=== PATIENT | female | born 1970 | race Caucasian/White ===

== ENCOUNTER 2018-12-09 10:09 | Emergency (ER) | payer SELFPAY ==
[~2018-12-09] VITALS: Ht 162.6 cm; Wt 72.7 kg
[2018-12-09 10:29] LABS: CLARITY,URINE CLOUDY; COLOR,URINE YELLOW; GLUCOSE, URINE (UA) NEGATIVE (NEGATIVE); PROTEIN,URINE 2+ (NEGATIVE)
[2018-12-09 10:30] LABS: BACTERIA,URINE LARGE /HPF; BILIRUBIN,URINE NEGATIVE (NEGATIVE); HCG,QUALITATIVE URINE NEGATIVE (NEGATIVE); KETONES,URINE NEGATIVE (NEGATIVE); LEUKOCYTE ESTERASE ,URINE 3+ (NEGATIVE); NITRITE,URINE POSITIVE (NEGATIVE); WBC,URINE TNTC /HPF
[2018-12-09] MEDS: NS IV 1000 ML 1,000 ML IV SCH ×2 (10:30→12:27)
--- NOTE | 2018-12-09 10:40 | ED GU-Female ---
General Chief Complaint: - Urinary Stated Complaint: LOWER BACK PAIN;FEVER;PAINFUL URINATION Nursing Triage Note: Patient reports fever, chills, nausea, and left flank pain since Monday. States she has had frequent UTIs since a left ureteral surgical repair in 2013. Nursing Sepsis Screen: Possible Severe Sepsis Risk Source: patient Exam Limitations: no limitations History of Present Illness Date Seen by Provider: Dec 09, 2018 Time Seen by Provider: 10:20 Initial Comments The patient is a pleasant 48-year-old female who presents for evaluation of dysuria, fever, and left lower back pain over the last 2-3 days. She reports that approximately 5 years ago she had a hysterectomy and during the procedure her ureter was injured. She states that since that time she deals with frequent UTIs and occasional pyelonephritis. She says this feels the same as previous pyelonephritis. She took her temperature at home yesterday and it was between 102-103. She is alert and oriented 4, calm, and appears to be in no distress. She is noted to be tachycardic upon arrival with a heart rate of 114. The patient provides a urine sample upon arrival and it is noted to be quite cloudy. The patient denies chest pain or shortness of breath, hematuria, abdominal pain, nausea or vomiting, dizziness or syncope. She states that she had to Bactrim pills at home and she took those thinking it would help but it made no difference. Timing/Duration: just prior to arrival Severity/Quality: moderate Location: left flank Radiation: none Activities at Onset: none Prior Genitourinary Problems: similar symptoms Associated Symptoms: fever/chills, lower back pain, urinary frequency Allergies and Home Medications Allergies Coded Allergies: Penicillins (Verified Allergy, Unknown, 12/09/18) Patient states she had an allergy as a child, but has taken amoxicillin as an adult without any reaction. Patient Home Medication List Home Medication List Reviewed: Yes Review of Systems Review of Systems Constitutional: chills, fever EENTM: no symptoms reported Respiratory: no symptoms reported Cardiovascular: no symptoms reported Gastrointestinal: no symptoms reported Genitourinary: burning, dysuria, frequency, flank pain Musculoskeletal: no symptoms reported Skin: no symptoms reported Psychiatric/Neurological: No Symptoms Reported Endocrine: No Symptoms Reported Hematologic/Lymphatic: No Symptoms Reported All Other Systemes Reviewed Negative Unless Noted: Yes Past Cmdvzdd-Cshtsv-Elsfqx Hx Past Med/Social Hx: Reviewed Nursing Past Med/Soc Hx Patient Social History Recent Foreign Travel: No Contact w/Someone Who Travel: No Recent Infectious Disease Expo: No Physical Exam Vital Signs Vital Signs - First Documented 12/09/18 10:15 Temp 36.4 Pulse 114 Resp 18 B/P (MAP) 117/74 (88) Pulse Ox 96 O2 Delivery Room Air Capillary Refill : Less Than 3 Seconds Height, Weight, BMI Height: '" Weight: lbs. oz. kg; 27.00 BMI Method: General Appearance: WD/WN, no apparent distress HEENT: PERRL/EOMI, pharynx normal Neck: non-tender, full range of motion Cardiovascular: regular rate, rhythm, no edema, no JVD Respiratory: chest non-tender, lungs clear, normal breath sounds, no respiratory distress, no accessory muscle use Gastrointestinal: normal bowel sounds, non tender, soft Back: no vertebral tenderness, CVA tenderness (L) Extremities: normal range of motion, non-tender, normal inspection, no pedal edema Neurologic/Psychiatric: electrophysiology technologist II-XII nml as tested, no motor/sensory deficits, alert, normal mood/affect, oriented x 3 Skin: normal color, warm/dry Focused Exam Lactate Level 12/09/18 10:45: Lactic Acid Level 1.82 Lactic Acid Level Laboratory Tests Test 12/09/18 10:45 Lactic Acid Level 1.82 MMOL/L (0.50-2.00) Progress/Results/Core Measures Suspected Sepsis Recent Fever Within 48 Hours: Yes Infection Criteria Present: Suspected New Infection New/Unexplained Altered Menta: No Sepsis Screen: Possible Severe Sepsis Risk SIRS Temperature: Pulse: 114 Respiratory Rate: 18 Laboratory Tests 12/09/18 10:45: White Blood Count 8.5 Blood Pressure 117 /74 Mean: 88 12/09/18 10:45: Lactic Acid Level 1.82 Laboratory Tests 12/09/18 10:45: Creatinine 1.24, Platelet Count 186, Total Bilirubin 0.5 Results/Orders Lab Results Laboratory Tests Test 12/09/18 10:15 12/09/18 10:45 Range/Units Urine Color YELLOW Urine Clarity CLOUDY Urine pH 7.0 5-9 Urine Specific [place] 1.020 1.016-1.022 Urine Protein 2+ H NEGATIVE Urine Glucose (UA) NEGATIVE NEGATIVE Urine Ketones NEGATIVE NEGATIVE Urine Nitrite POSITIVE H NEGATIVE Urine Bilirubin NEGATIVE NEGATIVE Urine Urobilinogen 1.0 NORMAL MG/DL Urine Leukocyte Esterase 3+ H NEGATIVE Urine RBC (Auto) 2+ H NEGATIVE Urine RBC NONE /HPF Urine WBC TNTC H /HPF Urine Crystals NONE /LPF Urine Bacteria LARGE H /HPF Urine Casts NONE /LPF Urine Mucus NEGATIVE /LPF Urine Culture Indicated YES Urine Test NEGATIVE NEGATIVE White Blood Count 8.5 4.3-11.0 10^3/uL Red Blood Count 4.23 L 4.35-5.85 10^6/uL Hemoglobin 13.3 11.5-16.0 G/DL Hematocrit 40 35-52 % Mean Corpuscular Volume 96 80-99 FL Mean Corpuscular Hemoglobin 31 25-34 PG Mean Corpuscular Hemoglobin Concent 33 32-36 G/DL Red Cell Distribution Width 13.0 10.0-14.5 % Platelet Count 186 130-400 10^3/uL Mean Platelet Volume 11.3 H 7.4-10.4 FL Neutrophils (%) (Auto) 83 H 42-75 % Lymphocytes (%) (Auto) 9 L 12-44 % Monocytes (%) (Auto) 8 0-12 % Eosinophils (%) (Auto) 0 0-10 % Basophils (%) (Auto) 0 0-10 % Neutrophils # (Auto) 7.0 1.8-7.8 X 10^3 Lymphocytes # (Auto) 0.7 L 1.0-4.0 X 10^3 Monocytes # (Auto) 0.6 0.0-1.0 X 10^3 Eosinophils # (Auto) 0.0 0.0-0.3 10^3/uL Basophils # (Auto) 0.0 0.0-0.1 10^3/uL Sodium Level 141 135-145 MMOL/L Potassium Level 3.8 3.6-5.0 MMOL/L Chloride Level 104 98-107 MMOL/L Carbon Dioxide Level 24 21-32 MMOL/L Anion Gap 13 5-14 MMOL/L Blood Urea Nitrogen 13 7-18 MG/DL Creatinine 1.24 0.60-1.30 MG/DL Estimat Glomerular Filtration Rate 47 BUN/Creatinine Ratio 10 Glucose Level 132 H 70-105 MG/DL Lactic Acid Level 1.82 0.50-2.00 MMOL/L Calcium Level 9.3 8.5-10.1 MG/DL Corrected Calcium 9.1 8.5-10.1 MG/DL Total Bilirubin 0.5 0.1-1.0 MG/DL Aspartate Amino Transf (AST/SGOT) 17 5-34 U/L Alanine Aminotransferase (ALT/SGPT) 13 0-55 U/L Alkaline Phosphatase 102 40-136 U/L Total Protein 7.5 6.4-8.2 GM/DL Albumin 4.2 3.2-4.5 GM/DL My Orders Orders - SYLVIA PEÑALOZA DO Ua Culture If Indicated (12/09/18 10:11) Hcg,Qualitative Urine (12/09/18 10:11) Cbc With Automated Diff (12/09/18 10:26) Comprehensive Metabolic Panel (12/09/18 10:26) Ed Iv/Invasive Line Start (12/09/18 10:26) Lactic Acid Analyzer (12/09/18 10:26) Blood Culture (12/09/18 10:26) Professor Of Radiology (12/09/18 10:26) Urine Culture (12/09/18 10:15) Ketorolac Injection (Toradol Injection) (12/09/18 10:45) Ns Iv 1000 Ml (Sodium Chloride 0.9%) (12/09/18 10:45) Ceftriaxone For Iv Use (Rocephin For I (12/09/18 11:00) Blood Culture (12/09/18 11:25) Medications Given in ED Current Medications Medications Dose Ordered Sig/Veronica Route Start Time Stop Time Status Last Admin Dose Admin Ceftriaxone Sodium 1000 mg/ Sterile Water 10 ml @ 200 mls/hr ONCE ONCE IV 12/09/18 11:00 12/09/18 11:02 DC 12/09/18 11:41 200 MLS/HR Ketorolac Tromethamine 30 mg ONCE ONCE IVP 12/09/18 10:45 12/09/18 10:46 DC 12/09/18 10:30 30 MG Vital Signs/I&O 12/09/18 10:15 Temp 36.4 Pulse 114 Resp 18 B/P (MAP) 117/74 (88) Pulse Ox 96 O2 Delivery Room Air Capillary Refill : Less Than 3 Seconds Blood Pressure Mean: 88 Progress Note : Progress Note @1200 - Patient updated on lab results suggesting an acute UTI with clinical evidence of pyelonephritis. The patient does not meet sepsis criteria. She is been given a dose of Rocephin and will go home with a prescription for ciprofloxacin. Workup today fails to reveal any emergent pathology. The patient is stable for discharge at this time. She expresses verbal understanding and agreement with the plan. She is to follow up with her PCP in the next 2-3 days and to return to the emergency Department immediately for new or worsening symptoms. Departure Impression Primary Impression: Acute pyelonephritis Disposition: HOME, SELF-CARE Condition: Stable Departure-Patient Inst. Decision time for Depature: 12:02 Referrals: SELFMITESH MD (PCP/Family) Primary Care Physician Patient Instructions: Kidney Infection (DC) Add. Discharge Instructions: Take the prescribed medication as directed. Return to the ER immediately for new or worsening symptoms. Follow-up with your doctor in the next 1-2 days. Scripts Ciprofloxacin HCl (Cipro) 500 Mg Tablet 500 MG PO BID for 7 Days, #14 TAB Prov: SYLVIA PEÑALOZA DO 12/09/18 SYLVIA PEÑALOZA DO Dec 09, 2018 10:40
[2018-12-09] MEDS ORDERED: KETOROLAC 30 MG/ML VIAL IVP ONE (10:45)
[2018-12-09] MEDS ORDERED: cefTRIAXone FOR IV USE 1,000 MG in WATER (STERILE) FOR INJECTION 10 ML IV ONE (11:00)
[2018-12-09 11:06] LABS: HEMATOCRIT 40 % (35-52); HEMOGLOBIN 13.3 G/DL (11.5-16.0); MEAN CORPUSCULAR HEMOGLOBIN 31 PG (25-34); MEAN CORPUSCULAR VOLUME 96 FL (80-99); WHITE BLOOD COUNT 8.5 10^3/uL (4.3-11.0)
[2018-12-09 11:07] LABS: BASOPHILS % (AUTO) 0 % (0-10); EOSINOPHILS % (AUTO) 0 % (0-10); LYMPHOCYTES # (AUTO) 0.7 X 10^3 (1.0-4.0); LYMPHOCYTES % (AUTO) 9 % (12-44); MEAN CORPUSCULAR HGB CONC 33 G/DL (32-36); MEAN PLATELET VOLUME 11.3 FL (7.4-10.4); MONOCYTES # (AUTO) 0.6 X 10^3 (0.0-1.0); MONOCYTES % (AUTO) 8 % (0-12); NEUTROPHILS % (AUTO) 83 % (42-75); PLATELET COUNT 186 10^3/uL (130-400)
[2018-12-09 11:23] LABS: ALBUMIN 4.2 GM/DL (3.2-4.5); BILIRUBIN,TOTAL 0.5 MG/DL (0.1-1.0); CALCIUM 9.3 MG/DL (8.5-10.1); CREATININE SERUM 1.24 MG/DL (0.60-1.30); POTASSIUM 3.8 MMOL/L (3.6-5.0); TOTAL PROTEIN 7.5 GM/DL (6.4-8.2)
[2018-12-09] MEDS ORDERED: CIPR-225 PO (12:05)
[2018-12-09] MEDS ORDERED: ONDA4TAB11 PO (12:11)
[2018-12-09 12:20] VITALS: BP 96/62
[2018-12-10] MEDS ORDERED: IBUP-2055 PO (09:41)
[2018-12-10] MEDS ORDERED: CIPR-225 PO (09:42)
== END 2018-12-09 12:17 | disposition home or self-care (01) ==
LOC: EDUNIT# 10:09 → ER FS 10:11 → EDBD 10:11 → ER FS 12:17
DX: N10 Acute pyelonephritis (principal); Z88.0 Allergy status to penicillin
CPT/HCPCS: 36415; 80053; 81000; 83605; 84703; 85025; 87040; 87077; 87088; 87186; 96361; 96374; 96375

== ENCOUNTER 2018-12-09 18:32 | Observation (INO) | payer SELFPAY ==
[~2018-12-09] VITALS: Ht 162 cm; Wt 82.2 kg
[~2018-12-09 18:32] MED LIST: CIPR-225 PO; ONDA4TAB11 PO
[2018-12-09] MEDS ORDERED: KETOROLAC 30 MG/ML VIAL IVP ONE (19:00)
[2018-12-09] MEDS ORDERED: ONDANSETRON 4 MG/2 ML (SDV) Z0FRAN IVP ONE (19:00)
[2018-12-09] MEDS ORDERED: ACETAMINOPHEN 325 MG TABLET PO ONE (19:00)
--- NOTE | 2018-12-09 19:00 | NUR ---
Report to Anat, triaging patient at this time.
--- NOTE | 2018-12-09 19:03 | ED General ---
General Chief Complaint: General Problems/Pain Stated Complaint: FEVER,CHILLS History of Present Illness Date Seen by Provider: Dec 09, 2018 Time Seen by Provider: 18:40 Initial Comments The patient is a 48-year-old female who presents for the second time today with concern for fever, dysuria and left lower back/left flank discomfort 2-3 days. Patient was diagnosed with pyelonephritis earlier today after labs demonstrated significant evidence of urinary infection and generally no other significant acute process. She was given a dose of Rocephin, IV fluids and started on Cipro. She returns for uncontrolled high fevers, nausea and rigors at home. Please see documentation from earlier today for further details as to the patient's workup and disposition at that time. Allergies and Home Medications Allergies Coded Allergies: Penicillins (Verified Allergy, Unknown, 12/09/18) Patient states she had an allergy as a child, but has taken amoxicillin as an adult without any reaction. Home Medications Ciprofloxacin HCl 500 Mg Tablet, 500 MG PO BID Prescribed by: SYLVIA PEÑALOZA on 12/09/18 1205 Ondansetron 4 Mg Tab.rapdis, 4 MG PO Q6H PRN for NAUSEA/VOMITING-1ST LINE Prescribed by: SYLVIA PEÑALOZA on 12/09/18 1211 Patient Home Medication List Home Medication List Reviewed: Yes Review of Systems Review of Systems Constitutional: see HPI EENTM: see HPI All Other Systems Reviewed Negative Unless Noted: Yes (Negative excepted noted.) Past Jbiygda-Kdvjdj-Wxjgak Hx Past Med/Social Hx: Reviewed Nursing Past Med/Soc Hx Patient Social History Alcohol Use: Denies Use Recreational Drug Use: No Smoking Status: Never a Smoker 2nd Hand Smoke Exposure: No Recent Hopitalizations: No Physical Abuse: No Sexual Abuse: No Mistreated: No Fear: No Seasonal Allergies Seasonal Allergies: No Past Medical History Surgeries: Yes (Left ureteral repair) Section, Hysterectomy Respiratory: No Cardiac: No Neurological: No Genitourinary: Yes Bladder Infection Gastrointestinal: No Musculoskeletal: No Endocrine: No HEENT: No Cancer: No Psychosocial: No Blood Disorders: No Family Medical History Reviewed Nursing Family Hx Physical Exam Vital Signs Capillary Refill : Height, Weight, BMI Height: '" Weight: lbs. oz. kg; 27.00 BMI Method: General Appearance: No Apparent Distress Comments This is an older female appearing nontoxic and in no acute distress. Head is normocephalic and atraumatic. Neck is supple and nontender. Oropharynx is moist. Lungs are clear to auscultation in all stations. There is a normal S1 and S2 without rubs or gallops and capillary refill is appropriate, less than 2 seconds globally. There is a tachycardic, regular rhythm. Abdomen is soft and with mild suprapubic tenderness to palpation without rebound or guarding. Skin is warm and dry without cyanosis, clubbing or edema. Psychiatrically, the patient didn't straights appropriate mood and affect and is alert. Progress/Results/Core Measures Suspected Sepsis SIRS Temperature: Pulse: Respiratory Rate: Blood Pressure / Mean: Results/Orders My Orders Orders - SINGH MILLAN MD Cbc With Automated Diff (12/09/18 18:55) Comprehensive Metabolic Panel (12/09/18 18:55) Ed Iv/Invasive Line Start (12/09/18 18:55) Ns Iv 1000 Ml (Sodium Chloride 0.9%) (12/09/18 18:55) Blood Culture (12/09/18 18:55) Lactic Acid Analyzer (12/09/18 18:55) Ketorolac Injection (Toradol Injection) (12/09/18 19:00) Acetaminophen Tablet/Caplet (Tylenol T (12/09/18 19:00) Ondansetron Injection (Zofran Injectio (12/09/18 19:00) Vital Signs/I&O Capillary Refill : Progress Note : Time: 19:01 Progress Note Patient states she feels worse than she did earlier and is febrile and tachycardic and appears septic from pyelonephritis despite optimal outpatient management beginning earlier today. She will require admission. We'll place IV and draw blood cultures and lactate and repeat basic labs. We will give antipyretics and IV fluids and nausea medication. Patient already had a dose of Rocephin earlier so we'll hold on additional antibiotics at this time. The patient is graciously accepted for [place] admission by Dr. Murillo. Departure Impression Primary Impression: Acute pyelonephritis Disposition: ADMITTED INPATIENT Condition: Stable Departure-Patient Inst. Referrals: SELFMITESH MD (PCP/Family) Primary Care Physician SINGH MILLAN MD Dec 09, 2018 19:03
[2018-12-09] MEDS: NS IV 1000 ML 1,000 ML IV SCH ×3 (19:15→22:14)
[2018-12-09 19:32] LABS: HEMOGLOBIN 12.4 G/DL (11.5-16.0); MEAN CORPUSCULAR HEMOGLOBIN 31 PG (25-34); WHITE BLOOD COUNT 7.1 10^3/uL (4.3-11.0)
[2018-12-09 19:33] LABS: BASOPHILS % (AUTO) 0 % (0-10); EOSINOPHILS % (AUTO) 0 % (0-10); HEMATOCRIT 39 % (35-52); LYMPHOCYTES % (AUTO) 13 % (12-44); MEAN CORPUSCULAR HGB CONC 32 G/DL (32-36); MEAN CORPUSCULAR VOLUME 38 FL (80-99); MEAN PLATELET VOLUME 10.8 FL (7.4-10.4); MONOCYTES # (AUTO) 0.7 X 10^3 (0.0-1.0); MONOCYTES % (AUTO) 10 % (0-12); NEUTROPHILS # (AUTO) 5.3 X 10^3 (1.8-7.8); NEUTROPHILS % (AUTO) 75 % (42-75); PLATELET COUNT 158 10^3/uL (130-400)
[2018-12-09 19:46] LABS: CREATININE SERUM 1.22 MG/DL (0.60-1.30); POTASSIUM 4.3 MMOL/L (3.6-5.0)
[2018-12-09 19:47] LABS: ALBUMIN 3.9 GM/DL (3.2-4.5); BILIRUBIN,TOTAL 0.4 MG/DL (0.1-1.0); CALCIUM 8.9 MG/DL (8.5-10.1); TOTAL PROTEIN 7.2 GM/DL (6.4-8.2)
--- NOTE | 2018-12-09 21:10 | NUR ---
HELENE GILES admitted to room 426-1, with an admitting diagnosis of acute pyelonephritis, on 12/09/18 from ER via stretcher, accompanied by EMS.HELENE GILES introduced to surroundings, call light, bed controls, phone, TV, temperature control, lights, meal times, smoking policy, visitor policy, side rail policy, bathrooms and showers. Patient Rights given to patient in the handbook. HELENE GILES verbalizes understanding that [facility] is not responsible for the loss or damage to any personal effects or valuables that are kept in the patients possession during their hospitalization.
[2018-12-09 21:20] VITALS: BP 108/66
[2018-12-09] MEDS ORDERED: IBUPROFEN 800 MG (MOTRIN) TAB PO PRN (22:00)
[2018-12-09] MEDS ORDERED: ONDANSETRON 4 MG/2 ML (SDV) Z0FRAN IV PRN (22:00)
[2018-12-09] MEDS ORDERED: ACETAMINOPHEN 500 MG TAB (TYLENOL) PO PRN (22:00)
[2018-12-09] MEDS ORDERED: cefTRIAXone 1,000 MG/SWFI 10 ML IV PUSH IV SCH ×2 (22:00)
--- NOTE | 2018-12-09 22:00 | NUR ---
Dr. Murillo notified of pain rated at 8:10 to left flank. New order rec for Fentanyl 50 mcg q 3 hr PRN pain.
[2018-12-09] MEDS: fentaNYL INJECTION 100 MCG/2 ML AMP IVP PRN (22:27)
[2018-12-09 23:55] VITALS: BP 98/66
[2018-12-10] MEDS: NS IV 1000 ML 1,000 ML IV SCH ×2 (03:27→19:29)
[2018-12-10 04:23] VITALS: BP 99/66
[2018-12-10 06:05] LABS: BASOPHILS % (AUTO) 0 % (0-10); EOSINOPHILS # (AUTO) 0.1 10^3/uL (0.0-0.3); EOSINOPHILS % (AUTO) 1 % (0-10); HEMATOCRIT 33 % (35-52); HEMOGLOBIN 10.8 G/DL (11.5-16.0); LYMPHOCYTES # (AUTO) 1.1 X 10^3 (1.0-4.0); LYMPHOCYTES % (AUTO) 19 % (12-44); MEAN CORPUSCULAR HEMOGLOBIN 31 PG (25-34); MEAN CORPUSCULAR HGB CONC 32 G/DL (32-36); MEAN CORPUSCULAR VOLUME 97 FL (80-99); MEAN PLATELET VOLUME 11.1 FL (7.4-10.4); MONOCYTES # (AUTO) 0.8 X 10^3 (0.0-1.0); MONOCYTES % (AUTO) 13 % (0-12); NEUTROPHILS % (AUTO) 67 % (42-75); PLATELET COUNT 136 10^3/uL (130-400); RED CELL DISTRIBUTION WIDTH 13.4 % (10.0-14.5)
[2018-12-10 06:34] LABS: ALANINE AMINOTRANSFERASE 14 U/L (0-55); ALBUMIN 3.2 GM/DL (3.2-4.5); ALKALINE PHOSPHATASE 65 U/L (40-136); BILIRUBIN,TOTAL 0.4 MG/DL (0.1-1.0); BUN/CREATININE RATIO 17; CARBON DIOXIDE 22 MMOL/L (21-32); CHLORIDE 113 MMOL/L (98-107); CREATININE SERUM 0.77 MG/DL (0.60-1.30); GFR ESTIMATED > 60; GLUCOSE 92 MG/DL (70-105); SODIUM 141 MMOL/L (135-145); TOTAL PROTEIN 6.2 GM/DL (6.4-8.2)
[2018-12-10 08:00] VITALS: BP 101/56
[2018-12-10] MEDS: fentaNYL INJECTION 100 MCG/2 ML AMP IVP PRN (08:36)
[2018-12-10] MEDS ORDERED: IBUP-2055 PO (09:41)
[2018-12-10] MEDS ORDERED: CIPR-225 PO (09:42)
--- NOTE | 2018-12-10 09:42 | NUR ---
SPOKE WITH PT WELL GOING THRU THE EXT MED HISTORY AND CALLING [facility] TO COMPLETE THE MED REC. SPOKE WITH [facility] AND THEY VERIFIED CIPRO 500MG WAS PICKED UP ON 12-09-2018 (A PRESCRIPTION OF ZOFRAN WAS ALSO SENT IN BUT THE PT NEVER PICKED THAT UP) OTC MEDS: IBUPROFEN 200MG; 4 TABS BID PRN P
[2018-12-10] MEDS: cefTRIAXone 1,000 MG/SWFI 10 ML IV PUSH IV SCH ×2 (12:22)
--- NOTE | 2018-12-10 12:35 | History & Physical ---
ELICIA EATON, 12/10/18 1235: HPI History of Present Illness: HPI: Pt presented to ED in [place] yesterday and was dx with left-sided kidney infection. Returned to ED with fever over 104, chills, nausea, and pain. She was admitted for the change in s/s. Rates pain 6/10 and describes it as throbbing. Pain medications help a bit. Has had hx of yearly pyelonephritis after ureter surgery in 2013. Has no s/s of UTI except for increase in urgency. Denies vomiting despite nausea. Source: patient Exam Limitations: no limitations Date seen by provider: Dec 10, 2018 Time Seen by Provider: 08:17 Attending Physician Salas Huang MD PCP Self,Denys SHELTON Consult Date of Admission Dec 09, 2018 at 19:00 Home Medications Home Medications Reviewed patient Home Medication Reconciliation performed by pharmacy medication reconciliations body technician and/or nursing. Patients Allergies have been reviewed. Allergies Coded Allergies: Penicillins (Verified Allergy, Unknown, 12/09/18) Patient states she had an allergy as a child, but has taken amoxicillin as an adult without any reaction. NJT-Qglczp-Snsfwi Hx Patient Social History Alcohol Use: Denies Use Recreational Drug Use: No Smoking Status: Never a Smoker 2nd Hand Smoke Exposure: No Recent Foreign Travel: No Contact w/other who traveled: No Recent Hopitalizations: No Recent Infectious Disease Expo: No Past Medical History PMHx: 1. Hypothyroidism PSHx: 1. L ureter repair in 2013 2. 3. D&C 4. Hysterectomy Family Medical History Significant Family History: No Pertinent Family Hx (Pt denies family hx) Family History: Patient reports no known family medical history. Review of Systems ([facility]) Constitutional: chills, fever; No weight gain, No weight loss EENTM: No hearing loss, No vision loss, No throat pain Respiratory: No cough, No short of breath Cardiovascular: No chest pain, No palpitations Gastrointestinal: No abdominal pain; constipation (4 days since BM), nausea; No vomiting Genitourinary: No dysuria, No frequency; other (urgency) Musculoskeletal: No back pain, No muscle pain Skin: No lesions, No rash Psychiatric/Neurological: Denies Anxiety, Denies Depressed, Denies Numbness, Denies Tingling Physical Exam-([facility]) Physical Exam Vital Signs VS - Last 72 Hours, by Label 12/09/18 12/09/18 12/09/18 12/09/18 18:37 20:20 21:10 21:20 Temp 39.5 39.0 36.7 Pulse 125 105 88 Resp 30 20 18 B/P (MAP) 141/78 (99) 120/71 108/66 Pulse Ox 94 98 96 96 O2 Delivery Room Air Room Air Room Air Room Air 12/09/18 12/10/18 23:55 04:23 Temp 35.7 36.4 Pulse 73 71 Resp 20 20 B/P (MAP) 98/66 (77) 99/66 (77) Pulse Ox 99 92 O2 Delivery Room Air Room Air Capillary Refill : Less Than 3 Seconds General Appearance: WD/WN, no apparent distress Eyes: Bilateral Eye Normal Inspection, Bilateral Eye EOMI HEENT: pharynx normal; No pale conjunctivae (R), No pale conjunctivae (L) Neck: non-tender, supple Respiratory: chest non-tender, lungs clear, normal breath sounds, no respiratory distress, no accessory muscle use Cardiovascular: regular rate, rhythm, no murmur Gastrointestinal: normal bowel sounds, non tender, soft Back: No CVA tenderness (R); CVA tenderness (L) Extremities: normal inspection, no pedal edema Neurologic/Psychiatric: alert, normal mood/affect, oriented x 3 Skin: normal color, warm/dry Lymphatic: no adenopathy Assessment/Plan Assessment/Plan Assessment & Plan Assessment: 1. Acute pyelonephritis 2. Hypothyroidism Plan: 1. Continue IV antibiotics and keep inpatient until fever-free for 24 hours 2. Continue home medications Clinical Quality Measures DVT/VTE Risk/Contraindication: Risk Factor Score Per Nursin RFS Level Per Nursing on Admit: 3=High SALAS HUANG MD 12/10/18 1315: HPI History of Present Illness: Date seen by provider: Dec 10, 2018 Time Seen by Provider: 10:55 Home Medications Allergies Coded Allergies: Penicillins (Verified Allergy, Unknown, 12/09/18) Patient states she had an allergy as a child, but has taken amoxicillin as an adult without any reaction. DDW-Dzpeea-Bgkfqj Hx Family Medical History Family History: Patient reports no known family medical history. Reviewed Test Results Reviewed Test Results Lab Laboratory Tests Test 12/09/18 17:00 12/10/18 05:49 Range/Units White Blood Count 7.1 6.0 4.3-11.0 10^3/uL Red Blood Count 3.97 L 3.46 L 4.35-5.85 10^6/uL Hemoglobin 12.4 10.8 L 11.5-16.0 G/DL Hematocrit 39 33 L 35-52 % Mean Corpuscular Volume 38 L 97 80-99 FL Mean Corpuscular Hemoglobin 31 31 25-34 PG Mean Corpuscular Hemoglobin Concent 32 32 32-36 G/DL Red Cell Distribution Width 13.0 13.4 10.0-14.5 % Platelet Count 158 136 130-400 10^3/uL Mean Platelet Volume 10.8 H 11.1 H 7.4-10.4 FL Neutrophils (%) (Auto) 75 67 42-75 % Lymphocytes (%) (Auto) 13 19 12-44 % Monocytes (%) (Auto) 10 13 H 0-12 % Eosinophils (%) (Auto) 0 1 0-10 % Basophils (%) (Auto) 0 0 0-10 % Neutrophils # (Auto) 5.3 4.0 1.8-7.8 X 10^3 Lymphocytes # (Auto) 1.0 1.1 1.0-4.0 X 10^3 Monocytes # (Auto) 0.7 0.8 0.0-1.0 X 10^3 Eosinophils # (Auto) 0.0 0.1 0.0-0.3 10^3/uL Basophils # (Auto) 0.0 0.0 0.0-0.1 10^3/uL Sodium Level 140 141 135-145 MMOL/L Potassium Level 4.3 4.0 3.6-5.0 MMOL/L Chloride Level 106 113 H 98-107 MMOL/L Carbon Dioxide Level 25 22 21-32 MMOL/L Anion Gap 9 6 5-14 MMOL/L Blood Urea Nitrogen 16 13 7-18 MG/DL Creatinine 1.22 0.77 0.60-1.30 MG/DL Estimat Glomerular Filtration Rate 47 > 60 BUN/Creatinine Ratio 13 17 Glucose Level 114 H 92 70-105 MG/DL Lactic Acid Level 0.67 0.50-2.00 MMOL/L Calcium Level 8.9 8.0 L 8.5-10.1 MG/DL Corrected Calcium 9.0 8.6 8.5-10.1 MG/DL Total Bilirubin 0.4 0.4 0.1-1.0 MG/DL Aspartate Amino Transf (AST/SGOT) 17 16 5-34 U/L Alanine Aminotransferase (ALT/SGPT) 5 14 0-55 U/L Alkaline Phosphatase 93 65 40-136 U/L Total Protein 7.2 6.2 L 6.4-8.2 GM/DL Albumin 3.9 3.2 3.2-4.5 GM/DL Physical Exam-([facility]) Physical Exam General Appearance: WD/WN, no apparent distress Respiratory: lungs clear, normal breath sounds, no respiratory distress, no accessory muscle use Cardiovascular: regular rate, rhythm, no murmur Gastrointestinal: normal bowel sounds, non tender, soft Extremities: normal inspection, no pedal edema Neurologic/Psychiatric: alert, normal mood/affect Skin: normal color, warm/dry Assessment/Plan Assessment/Plan Admission Status: Observation (1) Acute pyelonephritis Status: Acute Assessment & Plan: Without sepsis. Continue ceftriaxone, awaiting urine culture. (2) Hypothyroidism Status: Chronic Assessment & Plan: Resume home meds Qualifiers: Qualified Codes: E03.9 - Hypothyroidism, unspecified (3) DVT prophylaxis Status: Acute Assessment & Plan: Enoxaparin Supervisory-Addendum Brief Verification & Attestation Participated in pt care: history, MDM, physical Personally performed: exam, history, MDM, supervision of care Care discussed with: Medical Student Procedures: n/a Verification and Attestation of Medical Student E/M Service A medical student performed and documented this service in my presence. I reviewed and verified all information documented by the medical student and made modifications to such information, when appropriate. I personally performed the physical exam and medical decision making. See problem list for my assessment and plan. Salas Huang, Dec 10, 2018,13:15 ELICIA EATON Dec 10, 2018 12:35 SALAS HUANG MD Dec 10, 2018 13:15
[2018-12-10 12:40] VITALS: BP 99/54
[2018-12-10] MEDS ORDERED: ENOXAPARIN 40 MG/0.4 ML (LOVENOX) SYR SC SCH (13:30)
[2018-12-10 16:00] VITALS: BP 115/77
[2018-12-10 19:24] VITALS: BP 112/72
[2018-12-11] VITALS: BP 87/51
[2018-12-11] MEDS: NS IV 1000 ML 1,000 ML IV SCH
[2018-12-11 04:00] VITALS: BP 98/56
[2018-12-11 05:14] LABS: HEMOGLOBIN 10.5 G/DL (11.5-16.0); MEAN PLATELET VOLUME 11.5 FL (7.4-10.4); RED CELL DISTRIBUTION WIDTH 13.1 % (10.0-14.5); WHITE BLOOD COUNT 5.2 10^3/uL (4.3-11.0)
[2018-12-11 05:33] LABS: BUN/CREATININE RATIO 13; CALCIUM 8.3 MG/DL (8.5-10.1); CARBON DIOXIDE 22 MMOL/L (21-32); CHLORIDE 112 MMOL/L (98-107); CREATININE SERUM 0.76 MG/DL (0.60-1.30); GFR ESTIMATED > 60; GLUCOSE 98 MG/DL (70-105); POTASSIUM 4.1 MMOL/L (3.6-5.0); SODIUM 141 MMOL/L (135-145)
[2018-12-11 08:00] VITALS: BP 108/71
--- NOTE | 2018-12-11 11:30 | Discharge Instructions ---
Discharge [facility] Discharge Medications New, Converted or Re-Newed RX: Other (already picked up prior to admission) Continued Medications: Ciprofloxacin HCl (Cipro) 500 Mg Tablet 500 MG PO BID, TAB PICKED UP # DAY SUPPLY ON 12-09-2018 Ibuprofen (Ibuprofen) 200 Mg Tablet 800 MG PO BID PRN for PAIN-MILD, TAB Patient Instructions Goal/Follow Up Appt: Follow up with Dr. Lopez on 12/13 at 9:30 am. Return to The Hospital For: Fever, inability to keep down medications, decreased urination Activity & Diet Discharge Diet: Regular Diet Activity as Tolerated: Yes Copy Copies To 1: MITESH LOPEZ MD, BETHANY N MD Dec 11, 2018 11:29
[2018-12-11] MEDS: cefTRIAXone 1,000 MG/SWFI 10 ML IV PUSH IV SCH ×2 (11:33)
[2018-12-11 12:00] VITALS: BP 108/71
--- NOTE | 2018-12-12 16:28 | Discharge Summary ---
Discharge Summary Hospital Course Problems/Diagnosis: (1) Acute pyelonephritis Status: Acute Assessment & Plan: Without sepsis. Started on ceftriaxone. Discharged on cipro. Culture with E coli resistant to amp and Bactrim. (2) Hypothyroidism Status: Chronic Assessment & Plan: TSH 5.65, deferred levothyroxine to outpatient. Qualifiers: Qualified Codes: E03.9 - Hypothyroidism, unspecified Hospital Course Date of Admission: Dec 09, 2018 at 21:20 Admission Diagnosis : Family Physician/Provider: Denys Lopez MD Date of Discharge: 12/12/18 Discharge Diagnosis: See problem list Hospital Course: See problem list Labs and Pending Lab Test: Microbiology 12/09/18 Blood Culture - Preliminary, Resulted No growth Home Meds Active Reported Cipro (Ciprofloxacin HCl) 500 Mg Tablet 500 Mg PO BID PICKED UP #14 / 7 DAY SUPPLY ON 12-09-2018 Ibuprofen 200 Mg Tablet 800 Mg PO BID PRN Assessment/Pt DC Instructions see above Discharge Physical Examination Allergies: Coded Allergies: Penicillins (Verified Allergy, Unknown, 12/09/18) Patient states she had an allergy as a child, but has taken amoxicillin as an adult without any reaction. General Appearance: No Apparent Distress, WD/WN Respiratory: Lungs Clear, Normal Breath Sounds Cardiovascular: Regular Rate, Rhythm, No Murmur Neurologic/Psychiatric: Alert, Normal Mood/Affect Copy Copies To 1: DENYS LOPEZ MD Discharge Summary Date of Admission Dec 09, 2018 at 21:20 Date of Discharge Dec 11, 2018 at 11:27 Discharge Date: Dec 11, 2018 Discharge Diagnosis See problem list Clinical Quality Measures DVT/VTE Risk/Contraindication: Risk Factor Score Per Nursin RFS Level Per Nursing on Admit: 3=High SALAS JAMES MD Dec 12, 2018 16:28
== END 2018-12-11 11:27 | disposition home or self-care (01) ==
LOC: EDUNIT# 18:32 → ER FS 18:33 → UNDOADMOB 19:00 → 4TH 19:00 → UNDODISOB 12-11 12:00
PROVIDERS: ADMIT Internal Medicine; ATTEND Family Medicine
DX: N10 Acute pyelonephritis (principal); E03.9 Hypothyroidism, unspecified; Z88.0 Allergy status to penicillin; Z79.899 Other long term (current) drug therapy; Z90.710 Acquired absence of both cervix and uterus
CPT/HCPCS: 36415; 80048; 80053; 83605; 84443; 85025; 85027; 87040; 96361; 96374; 96375; G0378

== ENCOUNTER 2020-11-08 10:26 | Inpatient (IN) | payer SELFPAY ==
[~2020-11-08] VITALS: Ht 162.6 cm; Wt 89.6 kg
[~2020-11-08 10:26] MED LIST changes: +IBUP-2473 PO
--- OUTSIDE RECORDS SUMMARY | 2020-11-08 10:31 | XMS REPORT | Clinical Summary ---
Author Author [facility] Organization [facility] Address Unknown Phone Unavailable Care Team Providers Care Electromechanical Inspector Name Role Phone John, Denys SHELTON PCP Shagufta Lyles RN Unavailable Unavailable Devon Martines MD Unavailable Source Comments Some departments are not documenting in the electronic medical record. If you d o not see the information that you expected, contact Release of Information in [facility] Information Management department at [phone] for further assistan ce in locating additional records.[facility] Allergies Comments Active Allergy Reactions Severity Noted Date Penicillin G UNKNOWN 08/20/2013 Oxycodone-Acetaminophen UNKNOWN 08/20/2013 Medications End Date Status Medication Sig Dispensed Refills Start Date Active levofloxacin (LEVAQUIN) Take 750 mg 0 750 mg tablet by mouth daily. Active nitrofurantoin SR Take 1 Cap by 30 Cap 5 (MACROBID) 100 mg capsule mouth every 5 12 hours. 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 Intraoperative ureteral injury 08/20/2013 Surgical History Surgery Date Site/Laterality Comments ND CYSTO W/SIMPLE REMOVAL 09/30/2013 STONE & STENT Family History Medical History Relation Name Comments Hypertension Father Cancer Maternal Grandmother Arthritis-osteo Mother Asthma Mother Cancer Mother Cancer Paternal Grandfather Relation Name Status Comments Father Maternal Grandmother Mother Paternal Grandfather Social History Date Tobacco Use Types Packs/Day Years Used Never Smoker Smokeless Tobacco: Never Used Comments Alcohol Use Standard Drinks/Week quit February 2014 No 5 (1 standard drink = 0.6 o z pure alcohol) Sex Assigned at Date Recorded Not on file Last Filed Vital Signs Reading Time Taken Comments Vital Sign 118/75 04/21/2014 9:36 AM LICENSED WEIGHER Blood Pressure 78 04/21/2014 9:36 AM LICENSED WEIGHER Pulse 37.1 C (98.7 F) 08/24/2013 7:06 AM CDT Temperature - - Respiratory Rate 99% 08/24/2013 7:06 AM CDT Oxygen Saturation - - Inhaled Oxygen Concentration 78 kg (172 lb) 04/21/2014 9:36 AM LICENSED WEIGHER Weight 162.6 cm (5' 4") 04/21/2014 9:36 AM LICENSED WEIGHER Height 29.52 04/21/2014 9:36 AM LICENSED WEIGHER Body Mass Index Plan of Treatment Health Maintenance Due Date Last Done Comments HIV SCREENING 02/03/1987 DTAP/TDAP VACCINES (1 - 02/03/1990 Tdap) HEPATITIS C SCREENING 02/03/1990 PHYSICAL (COMPREHENSIVE) 02/03/1990 EXAM CERVICAL CANCER SCREENING 02/03/1993 BREAST CANCER SCREENING 2012 INFLUENZA VACCINE 12/11/2020 Results Not on filefrom Last 3 Months Insurance Type Payer Benefit Subscriber ID Effective Phone Address Plan / Dates Group PPO BCBS [facility] [id number] [id number] PREF CARE resent BLUE Medicaid [employer] [employer] [id number] 2014-P [facility] [phone] Advance Directives Patient Public Affairs Officer Explanation Type Date Recorded Advance 08/20/2013 3:55 PM Directive/DPOA Date Inactivated Comments Code Status Date Activated 08/24/2013 1:42 PM Full Code 08/20/2013 5:39 PM Provider has discussed Code Status Yes w/Patient or Family?
[2020-11-08 11:02] LABS: BASOPHILS % (AUTO) 0 % (0-10); EOSINOPHILS % (AUTO) 0 % (0-10); HEMATOCRIT 40 % (35-52); HEMOGLOBIN 13.5 g/dL (11.5-16.0); LYMPHOCYTES # (AUTO) 1.1 X 10^3 (1.0-4.0); LYMPHOCYTES % (AUTO) 20 % (12-44); MEAN CORPUSCULAR HEMOGLOBIN 31 pg (25-34); MEAN CORPUSCULAR HGB CONC 34 g/dL (32-36); MEAN CORPUSCULAR VOLUME 93 fL (80-99); MEAN PLATELET VOLUME 10.7 fL (9.0-12.2); MONOCYTES # (AUTO) 0.2 X 10^3 (0.0-1.0); MONOCYTES % (AUTO) 4 % (0-12); NEUTROPHILS # (AUTO) 4.2 X 10^3 (1.8-7.8); NEUTROPHILS % (AUTO) 74 % (42-75); PLATELET COUNT 227 10^3/uL (130-400); WHITE BLOOD COUNT 5.6 10^3/uL (4.3-11.0)
[2020-11-08] MEDS ORDERED: RT-ALBUTEROL HFA 8.5 GM INHALER IH STA (11:03)
[2020-11-08] MEDS ORDERED: NS IV 1000 ML 1,000 ML IV STA ×2 (11:03→12:06)
[2020-11-08 11:04] LABS: INR 0.9 (0.8-1.4); PROTHROMBIN TIME PATIENT 12.4 SEC (12.2-14.7)
[2020-11-08 11:13] LABS: ALANINE AMINOTRANSFERASE 49 U/L (0-55); ALKALINE PHOSPHATASE 165 U/L (40-136); BILIRUBIN,TOTAL 0.3 MG/DL (0.1-1.0); BUN/CREATININE RATIO 8; CALCIUM 8.6 MG/DL (8.5-10.1); CARBON DIOXIDE 27 MMOL/L (21-32); CHLORIDE 99 MMOL/L (98-107); CREATININE SERUM 1.18 MG/DL (0.60-1.30); GFR ESTIMATED 49; GLUCOSE 128 MG/DL (70-105); POTASSIUM 4.2 MMOL/L (3.6-5.0); SODIUM 137 MMOL/L (135-145); TOTAL PROTEIN 7.5 GM/DL (6.4-8.2)
[2020-11-08] MEDS ORDERED: ONDANSETRON 4 MG/2 ML (SDV) Z0FRAN IVP STA (11:14)
--- NOTE | 2020-11-08 11:14 | ED Respiratory ---
General Chief Complaint: Respiratory Problems Stated Complaint: COUGH; SOB Source: patient, old records History of Present Illness Date Seen by Provider: Nov 08, 2020 Time Seen by Provider: 10:28 Initial Comments 50 yo female presenting with complaints of over 2 weeks of respiratory symptoms. Her tested positive for Covid 1 week ago. She has not gone to see Dr. Lopez or tried to get any help with her illness from clinic during the last 2 weeks. She presents today to the emergency department because she was tired of being sick at home and said she could not tolerate it any longer. She was having rib pain from coughing so hard. She states occasionally she is bringing up some mucus. She has had some nausea and vomiting but denies diarrhea. She denies pain with urination. She feels weak overall and has some dizzy and lightheaded sensation when she stands. She denies any pain or swelling in her calves or legs. Prior Episodes/Possible Cause: no prior episodes Associated Symptoms: chest pain/soreness (from coughing), cough, dizziness, fever/chills, headache, lightheadedness, muscle aches, nasal congestion, nasal drainage, shortness of breath, wheezing Allergies and Home Medications Allergies Coded Allergies: Penicillins (Verified Allergy, Unknown, 12/09/18) Patient states she had an allergy as a child, but has taken amoxicillin as an adult without any reaction. Home Medications No Active Prescriptions or Reported Meds Patient Home Medication List Home Medication List Reviewed: Yes Review of Systems Review of Systems Constitutional: chills, dizziness, fever, malaise, weakness EENTM: see HPI Respiratory: cough; No hemoptysis; short of breath; No stridor; wheezing Cardiovascular: see HPI; No edema Gastrointestinal: see HPI; No diarrhea; nausea, vomiting Genitourinary: decreased output Musculoskeletal: see HPI Skin: No rash Psychiatric/Neurological: Headache Past Wfftiuj-Kyufhb-Xwvvqu Hx Seasonal Allergies Seasonal Allergies: No Past Medical History Surgeries: Yes (Left ureteral repair) Section, Hysterectomy Respiratory: No Cardiac: No Neurological: No Genitourinary: Yes Kidney Infection, Bladder Infection, UTI-Chronic Gastrointestinal: No Musculoskeletal: No Endocrine: No HEENT: No Cancer: No Psychosocial: No Blood Disorders: No Family Medical History Patient reports no known family medical history. No Pertinent Family Hx Physical Exam Vital Signs - First Documented 11/08/20 11/08/20 10:40 12:30 Temp 37.4 Pulse 111 Resp 22 B/P (MAP) 91/67 (75) Pulse Ox 92 O2 Delivery Room Air O2 Flow Rate 2.00 Capillary Refill : Height: '" Weight: lbs. oz. kg; 31.32 BMI Method: General Appearance: mild distress, obese HEENT: PERRL/EOMI, pharynx normal Neck: non-tender, full range of motion, supple, normal inspection Respiratory: no respiratory distress, no accessory muscle use, decreased breath sounds, other (tender to chest wall with palpation) Cardiovascular: normal peripheral pulses, tachycardia Gastrointestinal: normal bowel sounds, soft, no pulsatile mass Extremities: normal range of motion, non-tender, no calf tenderness, normal capillary refill Neurologic/Psychiatric: field marketing coordinator II-XII nml as tested, alert, oriented x 3 Skin: normal color, warm/dry Focused Exam Lactate Level 11/08/20 10:45: Lactic Acid Level 1.08 Lactic Acid Level Laboratory Tests Test 11/08/20 10:45 Lactic Acid Level 1.08 MMOL/L (0.50-2.00) Progress/Results/Core Measures Suspected Sepsis SIRS Temperature: Pulse: Respiratory Rate: Laboratory Tests 11/08/20 10:45: White Blood Count 5.6 Blood Pressure / Mean: 11/08/20 10:45: Lactic Acid Level 1.08 Laboratory Tests 11/08/20 10:45: Creatinine 1.18, INR Comment 0.9, Platelet Count 227, Total Bilirubin 0.3 Results/Orders Lab Results Laboratory Tests Test 11/08/20 10:45 11/08/20 10:55 11/08/20 10:58 11/08/20 13:45 Range/Units White Blood Count 5.6 4.3-11.0 10^3/uL Red Blood Count 4.32 3.80-5.11 10^6/uL Hemoglobin 13.5 11.5-16.0 g/dL Hematocrit 40 35-52 % Mean Corpuscular Volume 93 80-99 fL Mean Corpuscular Hemoglobin 31 25-34 pg Mean Corpuscular Hemoglobin Concent 34 32-36 g/dL Red Cell Distribution Width 12.6 10.0-14.5 % Platelet Count 227 130-400 10^3/uL Mean Platelet Volume 10.7 9.0-12.2 fL Immature Granulocyte % (Auto) 2 % Neutrophils (%) (Auto) 74 42-75 % Lymphocytes (%) (Auto) 20 12-44 % Monocytes (%) (Auto) 4 0-12 % Eosinophils (%) (Auto) 0 0-10 % Basophils (%) (Auto) 0 0-10 % Neutrophils # (Auto) 4.2 1.8-7.8 X 10^3 Lymphocytes # (Auto) 1.1 1.0-4.0 X 10^3 Monocytes # (Auto) 0.2 0.0-1.0 X 10^3 Eosinophils # (Auto) 0.0 0.0-0.3 10^3/uL Basophils # (Auto) 0.0 0.0-0.1 10^3/uL Immature Granulocyte # (Auto) 0.1 0.0-0.1 10^3/uL Prothrombin Time 12.4 12.2-14.7 SEC INR Comment 0.9 0.8-1.4 Activated Partial Thromboplast Time 31 24-35 SEC D-Dimer 1.25 H 0.00-0.49 UG/ML Sodium Level 137 135-145 MMOL/L Potassium Level 4.2 3.6-5.0 MMOL/L Chloride Level 99 98-107 MMOL/L Carbon Dioxide Level 27 21-32 MMOL/L Anion Gap 11 5-14 MMOL/L Blood Urea Nitrogen 10 7-18 MG/DL Creatinine 1.18 0.60-1.30 MG/DL Estimat Glomerular Filtration Rate 49 BUN/Creatinine Ratio 8 Glucose Level 128 H 70-105 MG/DL Lactic Acid Level 1.08 0.50-2.00 MMOL/L Calcium Level 8.6 8.5-10.1 MG/DL Corrected Calcium 8.6 8.5-10.1 MG/DL Total Bilirubin 0.3 0.1-1.0 MG/DL Aspartate Amino Transf (AST/SGOT) 82 H 5-34 U/L Alanine Aminotransferase (ALT/SGPT) 49 0-55 U/L Alkaline Phosphatase 165 H 40-136 U/L Troponin I < 0.30 <0.30 NG/ML C-Reactive Protein 9.83 H <0.50 MG/DL Pro-B-Type Natriuretic Peptide 24.9 <75.0 PG/ML Total Protein 7.5 6.4-8.2 GM/DL Albumin 4.0 3.2-4.5 GM/DL Blood Gas Puncture Site RIGHT RADIAL Blood Gas Patient Temperature 99.5 Arterial Blood pH 7.50 H 7.37-7.43 Arterial Blood Partial Pressure CO2 35 35-45 MMHG Arterial Blood Partial Pressure O2 53 L 79-93 MMHG Arterial Blood HCO3 27 23-27 MMOL/L Arterial Blood Total CO2 28.4 21.0-31.0 MMOL/L Arterial Blood Oxygen Saturation 90 L 94-100 % Arterial Blood Base Excess 4.2 H -2.5-2.5 MMOL/L Mendoza Test NEGATIVE Blood Gas Ventilator Setting NO Blood Gas Inspired Oxygen ROOM AIR SARS-CoV-2 RNA (RT-PCR) Detected H Not Detecte Urine Color YELLOW Urine Clarity CLEAR Urine pH 6.0 5-9 Urine Specific Willis <=1.005 1.016-1.022 Urine Protein NEGATIVE NEGATIVE Urine Glucose (UA) NEGATIVE NEGATIVE Urine Ketones NEGATIVE NEGATIVE Urine Nitrite NEGATIVE NEGATIVE Urine Bilirubin NEGATIVE NEGATIVE Urine Urobilinogen 0.2 < = 1.0 MG/DL Urine Leukocyte Esterase NEGATIVE NEGATIVE Urine RBC (Auto) NEGATIVE NEGATIVE Urine RBC NONE /HPF Urine WBC 0-2 /HPF Urine Squamous Epithelial Cells 5-10 /HPF Urine Crystals NONE /LPF Urine Bacteria TRACE /HPF Urine Casts PRESENT /LPF Urine Hyaline Casts 0-2 H /LPF Urine Mucus NEGATIVE /LPF Urine Culture Indicated NO My Orders Orders - LATESHA HOLLEY MD Monitor-Rhythm Ecg Trace Only (11/08/20 10:59) Ed Iv/Invasive Line Start (11/08/20 10:59) Cbc With Automated Diff (11/08/20 10:59) Comprehensive Metabolic Panel (11/08/20 10:59) Crp Fs (11/08/20 10:59) Troponin I Fs (11/08/20 10:59) Protime With Inr (11/08/20 10:59) Partial Thromboplastin Time (11/08/20 10:59) Ekg Tracing (11/08/20 10:59) Arterial Blood Gas (11/08/20 10:59) Blood Culture (11/08/20 11:00) Lactic Acid Analyzer (11/08/20 11:00) Covid 19 Inhouse Test (11/08/20 11:00) Isolation Central Supply Req (11/08/20 11:00) Influenza A & B Antigens (11/08/20 11:00) Probnp Fs (11/08/20 11:02) Fibrin Degradation Products (11/08/20 11:02) Ua Culture If Indicated (11/08/20 11:02) Ns Iv 1000 Ml (Sodium Chloride 0.9%) (11/08/20 11:03) Dexamethasone Injection (Decadron Inje (11/08/20 11:03) Albuterol Inhaler (Albuterol) (11/08/20 11:03) Nursing Communication (Order) (11/08/20 11:03) Chest 1 View Ap/Pa Only (11/08/20 11:07) Ondansetron Injection (Zofran Injectio (11/08/20 11:14) Ondansetron Injection (Zofran Injectio (11/08/20 11:16) Ct Angio Chest W (11/08/20 11:48) Iohexol Injection (Omnipaque 350 Mg/Ml 1 (11/08/20 12:15) Received Contrast (Hold Metformin- Contr (11/08/20 12:15) Sodium Chloride Flush (Catheter Flush Sy (11/08/20 12:15) Ns (Ivpb) (Sodium Chloride 0.9% Ivpb Bag (11/08/20 12:15) Ns Iv 1000 Ml (Sodium Chloride 0.9%) (11/08/20 12:06) O2 (11/08/20 12:06) Lactated Ringers (Lr 1000 Ml Iv Solution (11/08/20 13:30) Medications Given in ED Current Medications Medications Dose Ordered Sig/Veronica Route Start Time Stop Time Status Last Admin Dose Admin Iohexol 100 ml ONCE ONCE IV 11/08/20 12:15 11/08/20 12:16 DC 11/08/20 12:25 100 ML Vital Signs/I&O 11/08/20 11/08/20 10:40 12:30 Temp 37.4 Pulse 111 Resp 22 B/P (MAP) 91/67 (75) Pulse Ox 92 95 O2 Delivery Room Air Nasal Cannula O2 Flow Rate 2.00 Capillary Refill : Progress Note #1: Progress Note Check labs as well as chest x-ray, EKG, blood gas, cardiac enzymes, D-dimer. Give IV fluids for hydration, Decadron as a steroid to help with inflammation and cough, albuterol inhaler with spacer to help with cough. Differential diagnosis includes Covid since had a positive exposure with her tested positive last week. Also pulmonary embolism, pneumonia, influenza, myocardial infarction, viral syndrome, pyelonephritis Progress Note #2: Progress Note Labs shows CBC stable without acute significant anemia. Normal white count. The chemistry does not show any acute significant abnormality. She is not septic and has a normal lactic acid. She does have an elevated CRP. Her cardiac enzymes are negative. Her ABG shows a pH of 7.5, PCO2 of 35, PO2 of 53 and this was on room air. Her coags are normal but she does have elevated D- dimer. The EKG is not show any acute significant abnormality and is a sinus tach. Chest x-ray shows diffuse patchy infiltrates consistent with Covid She is doing a little bit better with treatment and after the inhaler is coughing less. She felt like she was having some nausea might vomit because of her coughing so dose of Zofran was given as well. Will obtain a CT angio to evaluate her elevated D-dimer and concern for pulmonary embolism Progress Note #3: Progress Note CT angiogram of chest negative for PE. Proceed with admit to med/surg [facility] bed for [facility] service. ECG Initial ECG Impression Date: Nov 08, 2020 Initial ECG Impression Time: 11:05 Initial ECG Rate: 107 Initial ECG Rhythm: S.Tach Initial ECG Comparisson: No Previous ECG Available Comment Sinus tachycardia with a heart rate of 107 bpm. OH interval 164 ms. Right axis deviation. Low voltage in the precordial leads. QT interval 318 ms. QTc interval [address] elevation. No prior tracing available for comparison Diagnostic Imaging Diagonstic Imaging: Xray Plain Films/CT/US/NM/MRI: chest Comments [facility] Reviews & Information [facility]. [place], [place] NAME: HELENE GILES [facility] REC#: [id number] PT STATUS: REG ER : 1970 PHYSICIAN: LATESHA HOLLEY MD ADMIT DATE: 11/08/20/ER FS Draft Date of Exam:11/08/20 CHEST 1 VIEW AP/PA ONLY INDICATION: Cough and fever COMPARISON: No prior examinations are available for comparison. FINDINGS: The heart size is normal. There are patchy bilateral groundglass infiltrates. There is no pleural effusion or pneumothorax. The mediastinum is unremarkable. IMPRESSION: Patchy bilateral groundglass infiltrates suspect for atypical pneumonia possibly Covid. Recommend clinical correlation. Dictated on workstation # [id number] Dict: 11/08/20 1129 Trans: 11/08/20 1135 [facility] [id number] Interpreted by: ANDREA MORENO MD Electronically signed by: Reviewed: Reviewed by Me Diagonstic Imaging: CT Plain Films/CT/US/NM/MRI: chest Comments NAME: HELENE GILES [facility] REC#: [id number] PT STATUS: REG ER : 1970 PHYSICIAN: LATESHA HOLLEY MD ADMIT DATE: 11/08/20/ER FS Draft Date of Exam:11/08/20 CT ANGIO CHEST W PROCEDURE: CT angiography of the chest with contrast. TECHNIQUE: Multiple contiguous axial images were obtained through the chest after uneventful bolus administration of intravenous contrast. 3D reconstructed CTA MIP acquisitions were also performed. Auto Exposure Controls were utilized during the CT exam to meet ALARA standards for radiation dose reduction. INDICATION: Shortest of breath. Covid COMPARISON: There are no prior CTA chest examinations available for comparison. This study is less than optimal as the superiormost portion of the lung apices were not included. The plain film examination of the chest performed earlier today at 11:06 AM noted patchy groundglass infiltrates bilaterally. This was felt to be suspicious for pneumonia related to Covid. On this exam, there are groundglass infiltrates involving both lungs. This appearance is highly suggestive of pneumonia/atelectasis related to Covid. There is no pleural effusion identified. The aorta is not abnormally dilated and there is no sign of dissection. There is no defect within the pulmonary arteries to indicate a pulmonary embolus either. The heart size is within normal limits. There is no mediastinal or hilar adenopathy. The sections through the upper abdomen failed to show any evidence for an acute abnormality. The liver is of lower density than usually seen. This does suggest fatty metamorphosis. There is no obvious breast mass. The bone windows are unremarkable for a fracture or for a destructive lesion. IMPRESSION: 1. There are groundglass infiltrates involving both lungs. Most likely this is secondary to pneumonia/atelectasis related to the patient's diagnosis of Covid 19. 2. There is no acute cardiopulmonary abnormality noted otherwise. In particular, there is no sign of a pulmonary embolus. 3. The appearance of the liver does suggest fatty metamorphosis. Dictated on workstation # [id number] Dict: 11/08/20 1231 Trans: 11/08/20 1242 [facility] [id number] Interpreted by: ASIM COHEN MD Electronically signed by: Reviewed: Reviewed by Me Departure Communication (Admissions) Time/Spoke to Admitting Phy: 12:[address] Murillo on-call for [facility] and she accepted the patient for admission with presumed Covid since she is having some hypoxemia and dehydration with cough. Pending CT angiogram to look for pulmonary embolism prior to admission. Impression Primary Impression: Upper respiratory infection with cough and congestion Additional Impressions: COVID-19 virus infection Dehydration Hypoxemia Disposition: 30 STILL A PATIENT Condition: Stable Admissions Decision to Admit Reason: Admit from ER (General) Decision to Admit/Date: Nov 08, 2020 Time/Decision to Admit Time: 12:15 Departure-Patient Inst. Referrals: MITESH LOPEZ MD (PCP/Family) Primary Care Physician Scripts No Active Prescriptions or Reported Meds LATESHA HOLLEY MD Nov 08, 2020 11:14
[2020-11-08 11:15] LABS: ABG BASE EXCESS 4.2 MMOL/L (-2.5-2.5); ABG OXYGEN SATURATION 90 % (94-100); ABG PCO2 35 MMHG (35-45); ABG PO2 53 MMHG (79-93); ABG TCO2 28.4 MMOL/L (21.0-31.0)
[2020-11-08 11:16] LABS: ALLENS TEST NEGATIVE; INSPIRED O2 ROOM AIR; PATIENT TEMP 99.5; VENTILATOR NO
[2020-11-08] MEDS ORDERED: ONDANSETRON 4 MG/2 ML (SDV) Z0FRAN ONE (11:16)
--- NOTE | 2020-11-08 11:37 | Diagnostic Imaging Report ---
INDICATION: Cough and fever COMPARISON: No prior examinations are available for comparison. FINDINGS: The heart size is normal. There are patchy bilateral groundglass infiltrates. There is no pleural effusion or pneumothorax. The mediastinum is unremarkable. IMPRESSION: Patchy bilateral groundglass infiltrates suspect for atypical pneumonia possibly Covid. Recommend clinical correlation. Dictated by: Dictated on workstation # [id number]
[2020-11-08] MEDS ORDERED: IOHEXOL 350 MG/ML 100 ML (OMNIPAQUE 350) VIAL IV ONE (12:15)
[2020-11-08] MEDS ORDERED: NS 100 ML (IVPB) BAG IV ONE (12:15)
[2020-11-08] MEDS ORDERED: CATHETER FLUSH 10 ML SYR IV PRN ×2 (12:15→15:45)
[2020-11-08] MEDS ORDERED: HOLD METFORMIN - RECEIVED CONTRAST 20 ML VIAL IV SCH (12:15)
--- NOTE | 2020-11-08 12:42 | Diagnostic Imaging Report ---
PROCEDURE: CT angiography of the chest with contrast. TECHNIQUE: Multiple contiguous axial images were obtained through the chest after uneventful bolus administration of intravenous contrast. 3D reconstructed CTA MIP acquisitions were also performed. Auto Exposure Controls were utilized during the CT exam to meet ALARA standards for radiation dose reduction. INDICATION: Shortest of breath. Covid COMPARISON: There are no prior CTA chest examinations available for comparison. This study is less than optimal as the superiormost portion of the lung apices were not included. The plain film examination of the chest performed earlier today at 11:06 AM noted patchy groundglass infiltrates bilaterally. This was felt to be suspicious for pneumonia related to Covid. On this exam, there are groundglass infiltrates involving both lungs. This appearance is highly suggestive of pneumonia/atelectasis related to Covid. There is no pleural effusion identified. The aorta is not abnormally dilated and there is no sign of dissection. There is no defect within the pulmonary arteries to indicate a pulmonary embolus either. The heart size is within normal limits. There is no mediastinal or hilar adenopathy. The sections through the upper abdomen failed to show any evidence for an acute abnormality. The liver is of lower density than usually seen. This does suggest fatty metamorphosis. There is no obvious breast mass. The bone windows are unremarkable for a fracture or for a destructive lesion. IMPRESSION: 1. There are groundglass infiltrates involving both lungs. Most likely this is secondary to pneumonia/atelectasis related to the patient's diagnosis of Covid 19. 2. There is no acute cardiopulmonary abnormality noted otherwise. In particular, there is no sign of a pulmonary embolus. 3. The appearance of the liver does suggest fatty metamorphosis. Dictated by: Dictated on workstation # [id number]
[2020-11-08] MEDS ORDERED: LACTATED RINGERS 1,000 ML IV SCH (13:30)
[2020-11-08 13:57] LABS: BACTERIA,URINE TRACE /HPF; BILIRUBIN,URINE NEGATIVE (NEGATIVE); CLARITY,URINE CLEAR; COLOR,URINE YELLOW; GLUCOSE, URINE (UA) NEGATIVE (NEGATIVE); HYALINE CASTS, URINE 0-2 /LPF; KETONES,URINE NEGATIVE (NEGATIVE); LEUKOCYTE ESTERASE ,URINE NEGATIVE (NEGATIVE); NITRITE,URINE NEGATIVE (NEGATIVE); PROTEIN,URINE NEGATIVE (NEGATIVE); WBC,URINE 0-2 /HPF
[2020-11-08] MEDS ORDERED: diphenhydrAMINE 25 MG TAB (BENADRYL) PO PRN (16:00)
[2020-11-08] MEDS ORDERED: MELATONIN 3 MG TABLET PO PRN (16:00)
[2020-11-08] MEDS ORDERED: ALPRAZolam 0.25 MG (XANAX) TAB PO PRN (16:00)
[2020-11-08] MEDS ORDERED: LOPERAMIDE 2 MG (IMODIUM) TABLET PO PRN (16:00)
[2020-11-08] MEDS ORDERED: DOCUSATE SODIUM 100 MG (COLACE) CAP PO PRN (16:00)
[2020-11-08] MEDS ORDERED: CALCIUM CARBONATE 500 MG (TUMS) TAB.CHEW PO PRN (16:00)
[2020-11-08] MEDS ORDERED: ACETAMINOPHEN 325 MG TABLET PO PRN (16:00)
[2020-11-08] MEDS ORDERED: RT-ALBUTEROL HFA 8.5 GM INHALER IH PRN (16:00)
[2020-11-08] MEDS ORDERED: ACETAMINOPHEN 500 MG TAB (TYLENOL) PO PRN (16:00)
[2020-11-08] MEDS: guaiFENesin/CODEINE (ROBITUSSIN AC) 10ML UDC PO PRN (16:23)
[2020-11-08] MEDS: ENOXAPARIN 40 MG/0.4 ML (LOVENOX) SYR SC SCH (16:23)
[2020-11-08] MEDS: HYDROcodone/APAP 5 MG/325 MG (LORTAB) TAB PO PRN (16:24)
[2020-11-08] MEDS: LACTATED RINGERS 1,000 ML IV SCH (16:24)
[2020-11-08 16:29] VITALS: BP 91/67
[2020-11-08 16:59] VITALS: BP 102/55
[2020-11-08] MEDS ORDERED: RT-ALBUTEROL HFA 8.5 GM INHALER IH SCH (18:00)
[2020-11-08] MEDS: RT-ALBUTEROL HFA 8.5 GM INHALER IH SCH ×2 (19:01→21:07)
[2020-11-08 20:04] VITALS: BP 100/65
[2020-11-08] MEDS: polyethylene glycoL POWDER 17 GM (MIRALAX) PACK PO SCH (21:03)
[2020-11-08] MEDS: SENNA W/DOCUSATE (SENOKOT S) TABLET PO SCH (21:03)
[2020-11-08 22:22] LABS: ALBUMIN 3.5 GM/DL (3.2-4.5)
[2020-11-08 22:23] LABS: POTASSIUM 3.6 MMOL/L (3.6-5.0)
[2020-11-08 22:24] LABS: CALCIUM 8.2 MG/DL (8.5-10.1)
[2020-11-08 22:25] LABS: TOTAL PROTEIN 6.6 GM/DL (6.4-8.2)
[2020-11-08 22:27] LABS: BILIRUBIN,TOTAL 0.3 MG/DL (0.1-1.0)
[2020-11-08 22:29] LABS: CREATININE SERUM 1.03 MG/DL (0.60-1.30)
[2020-11-08 23:59] VITALS: BP 103/69
[2020-11-09] MEDS: RT-ALBUTEROL HFA 8.5 GM INHALER IH SCH ×5 (02:23→20:48)
[2020-11-09 04:06] VITALS: BP 93/60
[2020-11-09 05:38] LABS: BASOPHILS % (AUTO) 0 % (0-10); EOSINOPHILS % (AUTO) 0 % (0-10); HEMATOCRIT 34 % (35-52); HEMOGLOBIN 11.3 g/dL (11.5-16.0); LYMPHOCYTES # (AUTO) 0.4 10^3/uL (1.0-4.0); LYMPHOCYTES % (AUTO) 11 % (12-44); MEAN CORPUSCULAR HEMOGLOBIN 32 pg (25-34); MEAN CORPUSCULAR HGB CONC 33 g/dL (32-36); MEAN CORPUSCULAR VOLUME 96 fL (80-99); MONOCYTES # (AUTO) 0.2 10^3/uL (0.0-1.0); MONOCYTES % (AUTO) 6 % (0-12); NEUTROPHILS # (AUTO) 2.8 10^3/uL (1.8-7.8); NEUTROPHILS % (AUTO) 78 % (42-75); PLATELET COUNT 226 10^3/uL (130-400); WHITE BLOOD COUNT 3.5 10^3/uL (4.3-11.0)
[2020-11-09 05:43] LABS: SMEAR SCAN COMMENT YES
[2020-11-09 06:00] LABS: ALBUMIN 3.4 GM/DL (3.2-4.5); POTASSIUM 3.8 MMOL/L (3.6-5.0)
[2020-11-09 06:01] LABS: CALCIUM 8.4 MG/DL (8.5-10.1)
[2020-11-09 06:02] LABS: TOTAL PROTEIN 6.5 GM/DL (6.4-8.2)
[2020-11-09 06:04] LABS: BILIRUBIN,TOTAL 0.2 MG/DL (0.1-1.0)
[2020-11-09 06:06] LABS: CREATININE SERUM 0.83 MG/DL (0.60-1.30)
[2020-11-09 08:00] VITALS: BP 99/58
[2020-11-09] MEDS: polyethylene glycoL POWDER 17 GM (MIRALAX) PACK PO SCH ×2 (08:25→20:25)
[2020-11-09] MEDS: SENNA W/DOCUSATE (SENOKOT S) TABLET PO SCH ×2 (08:25→20:25)
[2020-11-09] MEDS ORDERED: ACET-2267 PO (08:53)
[2020-11-09] MEDS ORDERED: IBUP-2185 PO (08:53)
[2020-11-09] MEDS ORDERED: GUAI180L12 PO (08:53)
[2020-11-09] MEDS: LACTATED RINGERS 1,000 ML IV SCH (11:52)
[2020-11-09 12:00] VITALS: BP 114/65
[2020-11-09] MEDS: HYDROcodone/APAP 5 MG/325 MG (LORTAB) TAB PO PRN (14:38)
--- NOTE | 2020-11-09 15:37 | History & Physical ---
HPI History of Present Illness: 50 yo F that presented to ER with 2 weeks of not feeling well. States that she knew she had COVID because her whole family had it. She was doing ok but in the last week she started having more coughing spells and fevers with chills. She went and tested yesterday. She is not vaccinated at this time. States that she was having coughing fits and was coughing up some blood in her sputum. States that her ribs are hurting because she has been coughing so much. Denies any previous medical conditions. No CAD, HTN or DM. She is not currently taking any medications. Source: patient Date seen by provider: Nov 09, 2020 Time Seen by Provider: 10:25 Attending Physician Duglas Velez MD PCP Self,Denys SHELTON Consult Date of Admission Nov 08, 2020 at 14:30 Home Medications Home Medications Reviewed patient Home Medication Reconciliation performed by pharmacy medication reconciliations tissue recovery technician and/or nursing. Patients Allergies have been reviewed. Allergies Coded Allergies: Penicillins (Verified Allergy, Unknown, 11/08/20) Patient states she had an allergy as a child, but has taken amoxicillin as an adult without any reaction. [id number]-[id number]-[id number] Hx Patient Social History Smoking Status: Never a Smoker 2nd Hand Smoke Exposure: No Recent Hopitalizations: No Alcohol Use?: Yes Have you traveled recently?: No Past Medical History PMHx: 1. Hypothyroidism PSHx: 1. L ureter repair in 2013 2. 3. D&C 4. Hysterectomy Family Medical History Significant Family History: No Pertinent Family Hx Family History: Patient reports no known family medical history. Review of Systems ([facility]C) Constitutional: fever, malaise EENTM: hoarseness, nose congestion, throat pain Respiratory: cough, dyspnea on exertion, short of breath Cardiovascular: no symptoms reported Gastrointestinal: no symptoms reported Genitourinary: no symptoms reported Musculoskeletal: back pain Skin: no symptoms reported Psychiatric/Neurological: No Symptoms Reported Reviewed Test Results Reviewed Test Results Lab Laboratory Tests Test 11/08/20 22:04 11/09/20 05:00 Range/Units Sodium Level 140 139 135-145 MMOL/L Potassium Level 3.6 3.8 3.6-5.0 MMOL/L Chloride Level 108 H 108 H 98-107 MMOL/L Carbon Dioxide Level 18 L 21 21-32 MMOL/L Anion Gap 14 10 5-14 MMOL/L Blood Urea Nitrogen 11 10 7-18 MG/DL Creatinine 1.03 0.83 0.60-1.30 MG/DL Estimat Glomerular Filtration Rate 57 73 BUN/Creatinine Ratio 11 12 Glucose Level 265 H 178 H 70-105 MG/DL Calcium Level 8.2 L 8.4 L 8.5-10.1 MG/DL Corrected Calcium 8.6 8.9 8.5-10.1 MG/DL Total Bilirubin 0.3 0.2 0.1-1.0 MG/DL Aspartate Amino Transf (AST/SGOT) 81 H 65 H 5-34 U/L Alanine Aminotransferase (ALT/SGPT) 52 50 0-55 U/L Alkaline Phosphatase 127 118 40-136 U/L Total Protein 6.6 6.5 6.4-8.2 GM/DL Albumin 3.5 3.4 3.2-4.5 GM/DL White Blood Count 3.5 L 4.3-11.0 10^3/uL Red Blood Count 3.57 L 3.80-5.11 10^6/uL Hemoglobin 11.3 L 11.5-16.0 g/dL Hematocrit 34 L 35-52 % Mean Corpuscular Volume 96 80-99 fL Mean Corpuscular Hemoglobin 32 25-34 pg Mean Corpuscular Hemoglobin Concent 33 32-36 g/dL Red Cell Distribution Width 12.7 10.0-14.5 % Platelet Count 226 130-400 10^3/uL Mean Platelet Volume 11.0 9.0-12.2 fL Immature Granulocyte % (Auto) 5 % Neutrophils (%) (Auto) 78 H 42-75 % Lymphocytes (%) (Auto) 11 L 12-44 % Monocytes (%) (Auto) 6 0-12 % Eosinophils (%) (Auto) 0 0-10 % Basophils (%) (Auto) 0 0-10 % Neutrophils # (Auto) 2.8 1.8-7.8 10^3/uL Lymphocytes # (Auto) 0.4 L 1.0-4.0 10^3/uL Monocytes # (Auto) 0.2 0.0-1.0 10^3/uL Eosinophils # (Auto) 0.0 0.0-0.3 10^3/uL Basophils # (Auto) 0.0 0.0-0.1 10^3/uL Immature Granulocyte # (Auto) 0.2 H 0.0-0.1 10^3/uL Smear Scan YES Physical Exam-([facility]C) Physical Exam Vital Signs VS - Last 72 Hours, by Label 11/08/20 11/08/20 11/08/20 11/08/20 10:40 12:30 13:50 14:48 Temp 37.4 37.2 Pulse 111 109 Resp 22 23 B/P (MAP) 91/67 (75) 105/69 (75) Pulse Ox 92 95 96 O2 Delivery Room Air Nasal Cannula Nasal Cannula Nasal Cannula O2 Flow Rate 2.00 2.00 3.00 11/08/20 11/08/20 11/08/20 11/08/20 16:29 16:59 18:31 19:00 Temp 37.4 36.4 Pulse 111 89 101 94 Resp 18 B/P (MAP) 102/55 (71) Pulse Ox 92 92 O2 Delivery Nasal Cannula O2 Flow Rate 2.00 FiO2 21 11/08/20 11/08/20 11/08/20 11/08/20 19:01 20:04 20:34 21:07 Temp 36.6 Pulse 108 Resp 16 B/P (MAP) 100/65 (77) Pulse Ox 94 93 92 93 O2 Delivery Nasal Cannula Nasal Cannula Room Air Nasal Cannula O2 Flow Rate 3.00 2.00 2.00 3.00 11/08/20 11/09/20 11/09/20 11/09/20 23:59 01:00 02:23 04:06 Temp 36.4 36.3 Pulse 88 85 100 Resp 18 18 B/P (MAP) 103/69 (80) 93/60 (71) Pulse Ox 94 94 94 O2 Delivery Nasal Cannula Nasal Cannula Nasal Cannula O2 Flow Rate 2.00 3.00 3.00 11/09/20 11/09/20 11/09/20 11/09/20 06:40 07:55 08:00 08:00 Temp 35.8 Pulse 102 107 Resp 22 B/P (MAP) 99/58 (72) Pulse Ox 96 92 92 O2 Delivery Nasal Cannula Nasal Cannula Nasal Cannula O2 Flow Rate 3.00 2.50 3.00 11/09/20 11/09/20 11/09/20 11/09/20 10:49 12:00 12:43 14:33 Temp 36.1 Pulse 105 95 Resp 20 B/P (MAP) 114/65 (81) Pulse Ox 95 93 95 O2 Delivery Nasal Cannula Room Air Nasal Cannula O2 Flow Rate 2.00 1.00 11/09/20 16:53 Temp 36.5 Pulse 93 Resp 20 B/P (MAP) 108/57 (74) Pulse Ox 93 O2 Delivery Nasal Cannula O2 Flow Rate 1.00 Capillary Refill : Less Than 3 Seconds General Appearance: WD/WN, no apparent distress HEENT: PERRL/EOMI Neck: non-tender, full range of motion Respiratory: no respiratory distress, no accessory muscle use, wheezing Cardiovascular: normal peripheral pulses, regular rate, rhythm, no murmur Gastrointestinal: normal bowel sounds, non tender, soft Back: no CVA tenderness, no vertebral tenderness Extremities: normal range of motion, non-tender, no pedal edema, no calf tenderness, normal capillary refill Neurologic/Psychiatric: food safety field specialist II-XII nml as tested, alert, oriented x 3 Skin: normal color, warm/dry Lymphatic: no adenopathy Assessment/Plan Assessment/Plan Admission Status: Inpatient Order (span 2 midnights) Reason for Inpatient Admission: Needs frequent monitoring and oxygen administration (1) COVID-19 virus infection Status: Acute Assessment & Plan: - Dexamethasone, Discussed Remdemivir but due to symptom onset of 2 weeks ago will hold off, MAT protocol, IS, titrate oxygen as tole rated, no baseline oxygen requirement (2) Hypoxemia Status: Acute (3) D-dimer, elevated Status: Acute Assessment & Plan: - Lovenox (4) DVT prophylaxis Status: Acute Copy Copies To 1: SELF,DUGLAS DYE MD, MD Nov 09, 2020 15:37
[2020-11-09 16:53] VITALS: BP 108/57
[2020-11-09] MEDS: ENOXAPARIN 40 MG/0.4 ML (LOVENOX) SYR SC SCH (17:37)
[2020-11-09 20:43] VITALS: BP 107/60
[2020-11-10] VITALS (7 sets, daily range): BP systolic 106–141; BP diastolic 67–87
[2020-11-10] MEDS: RT-ALBUTEROL HFA 8.5 GM INHALER IH SCH ×4 (02:40→21:18)
[2020-11-10] MEDS: ONDANSETRON 4 MG/2 ML (SDV) Z0FRAN IVP PRN ×2 (04:47→23:51)
[2020-11-10] MEDS: guaiFENesin/CODEINE (ROBITUSSIN AC) 10ML UDC PO PRN ×2 (04:48→22:34)
[2020-11-10 06:14] LABS: BASOPHILS % (AUTO) 0 % (0-10); EOSINOPHILS % (AUTO) 0 % (0-10); HEMATOCRIT 34 % (35-52); HEMOGLOBIN 10.7 g/dL (11.5-16.0); LYMPHOCYTES # (AUTO) 0.7 10^3/uL (1.0-4.0); LYMPHOCYTES % (AUTO) 9 % (12-44); MEAN CORPUSCULAR HEMOGLOBIN 31 pg (25-34); MEAN CORPUSCULAR HGB CONC 32 g/dL (32-36); MEAN CORPUSCULAR VOLUME 98 fL (80-99); MEAN PLATELET VOLUME 11.2 fL (9.0-12.2); MONOCYTES # (AUTO) 0.3 10^3/uL (0.0-1.0); MONOCYTES % (AUTO) 4 % (0-12); NEUTROPHILS # (AUTO) 6.9 10^3/uL (1.8-7.8); NEUTROPHILS % (AUTO) 83 % (42-75); PLATELET COUNT 246 10^3/uL (130-400); WHITE BLOOD COUNT 8.3 10^3/uL (4.3-11.0)
[2020-11-10 06:22] LABS: ALBUMIN 3.3 GM/DL (3.2-4.5); POTASSIUM 4.3 MMOL/L (3.6-5.0)
[2020-11-10 06:23] LABS: CALCIUM 8.7 MG/DL (8.5-10.1)
[2020-11-10 06:25] LABS: TOTAL PROTEIN 6.3 GM/DL (6.4-8.2)
[2020-11-10 06:26] LABS: BILIRUBIN,TOTAL 0.3 MG/DL (0.1-1.0)
[2020-11-10 06:28] LABS: CREATININE SERUM 0.79 MG/DL (0.60-1.30)
[2020-11-10] MEDS: LACTATED RINGERS 1,000 ML IV SCH (06:43)
[2020-11-10] MEDS: polyethylene glycoL POWDER 17 GM (MIRALAX) PACK PO SCH ×2 (08:36→22:34)
[2020-11-10] MEDS: SENNA W/DOCUSATE (SENOKOT S) TABLET PO SCH ×2 (08:36→22:34)
[2020-11-10] MEDS: ONDANSETRON 4 MG (ZOFRAN) ORAL DISSOLVE TAB PO PRN (08:36)
[2020-11-10] MEDS: ENOXAPARIN 40 MG/0.4 ML (LOVENOX) SYR SC SCH (17:59)
--- NOTE | 2020-11-10 21:28 | Progress Note ---
Subjective Subjective/Events-last exam Patient feeling much better. Still having coughing fits but they are less. Titrated off oxygen. tolerating PO diet and ambulation. Up to shower today Review of Systems Pulmonary: Dyspnea, Cough Cardiovascular: No: Chest Pain, Palpitations Gastrointestinal: No: Nausea, Vomiting, Abdominal Pain Neurological: Weakness Focused Exam Lactate Level 11/08/20 10:45: Lactic Acid Level 1.08 Objective Exam Last Set of Vital Signs Vital Signs Date Time Temp Pulse Resp B/P (MAP) Pulse Ox O2 Delivery O2 Flow Rate FiO2 11/10/20 21:18 93 Room Air 11/10/20 20:30 36.4 61 20 141/87 (105) 11/10/20 06:56 1.00 11/08/20 16:29 21 Capillary Refill : Less Than 3 Seconds I&O Intake and Output 11/10/20 00:00 Intake Total 2072 ml Balance 2072 ml Intake Oral 2072 ml # Voids 9 General: Alert, Oriented X3, No Acute Distress HEENT: Mucous Memb Moist/[place] Lungs: Clear to Auscultation, Normal Air Movement Heart: Regular Rate, No Murmurs Abdomen: Normal Bowel Sounds, Soft, No Tenderness, No Masses Extremities: No Edema, No Tenderness/Swelling Skin: No Rashes Neuro: Normal Speech, Sensation Intact, Cranial Nerves 3-12 NL Psych/Mental Status: Mental Status NL, Mood NL Results/Procedures Lab Laboratory Tests 11/10/20 05:40: White Blood Count 8.3, Red Blood Count 3.42L, Hemoglobin 10.7L, Hematocrit 34L, Mean Corpuscular Volume 98, Mean Corpuscular Hemoglobin 31, Mean Corpuscular Hemoglobin Concent 32, Red Cell Distribution Width 13.0, Platelet Count 246, Mean Platelet Volume 11.2, Immature Granulocyte % (Auto) 5, Neutrophils (%) (Auto) 83H, Lymphocytes (%) (Auto) 9L, Monocytes (%) (Auto) 4, Eosinophils (%) (Auto) 0, Basophils (%) (Auto) 0, Neutrophils # (Auto) 6.9, Lymphocytes # (Auto) 0.7L, Monocytes # (Auto) 0.3, Eosinophils # (Auto) 0.0, Basophils # (Auto) 0.0, Immature Granulocyte # (Auto) 0.4H, Sodium Level 142, Potassium Level 4.3, Chloride Level 110H, Carbon Dioxide Level 21, Anion Gap 11, Blood Urea Nitrogen 13, Creatinine 0.79, Estimat Glomerular Filtration Rate 78, BUN/Creatinine Ratio 16, Glucose Level 134H, Calcium Level 8.7, Corrected Calcium 9.3, Total Bilirubin 0.3, Aspartate Amino Transf (AST/SGOT) 76H, Alanine Aminotransferase (ALT/SGPT) 61H, Alkaline Phosphatase 126, Total Protein 6.3L, Albumin 3.3 Microbiology 11/08/20 Blood Culture - Preliminary, Resulted No growth Assessment/Plan Assessment/Plan (1) COVID-19 virus infection Status: Acute Assessment & Plan: - Dexamethasone, Discussed Remdemivir but due to symptom onset of 2 weeks ago will hold off, MAT protocol, IS, titrate oxygen as tolerated, no baseline oxygen requirement 11/10: Off oxygen this AM, Plan for d/c in AM (2) Hypoxemia Status: Acute (3) D-dimer, elevated Status: Acute Assessment & Plan: - Lovenox (4) DVT prophylaxis Status: Acute DUGLAS HUNTER MD Nov 10, 2020 21:28
[2020-11-11 03:16] VITALS: BP 135/80
[2020-11-11] MEDS: RT-ALBUTEROL HFA 8.5 GM INHALER IH SCH ×2 (03:37→07:56)
[2020-11-11 08:00] VITALS: BP 125/77
[2020-11-11] MEDS: polyethylene glycoL POWDER 17 GM (MIRALAX) PACK PO SCH (09:00)
[2020-11-11] MEDS: SENNA W/DOCUSATE (SENOKOT S) TABLET PO SCH (09:00)
[2020-11-11] MEDS: guaiFENesin/CODEINE (ROBITUSSIN AC) 10ML UDC PO PRN (09:42)
[2020-11-11] MEDS: ONDANSETRON 4 MG (ZOFRAN) ORAL DISSOLVE TAB PO PRN (09:53)
--- NOTE | 2020-11-11 12:13 | Discharge Summary ---
Diagnosis/Chief Complaint Date of Admission Nov 08, 2020 at 14:30 Date of Discharge Discharge Diagnosis Problems/Diagnosis: (1) COVID-19 virus infection Assessment & Plan: - Dexamethasone, Discussed Remdemivir but due to symptom onset of 2 weeks ago will hold off, MAT protocol, IS, titrate oxygen as tolerated, no baseline oxygen requirement 11/10: Off oxygen this AM, Plan for d/c in AM Status: Acute (2) Hypoxemia Status: Acute (3) D-dimer, elevated Assessment & Plan: - Lovenox Status: Acute (4) DVT prophylaxis Status: Acute Chief Complaint/HPI Chief Complaint/HPI 50 yo F that presented to ER with 2 weeks of not feeling well. States that she knew she had COVID because her whole family had it. She was doing ok but in the last week she started having more coughing spells and fevers with chills. She went and tested yesterday. She is not vaccinated at this time. States that she was having coughing fits and was coughing up some blood in her sputum. States that her ribs are hurting because she has been coughing so much. Denies any previous medical conditions. No CAD, HTN or DM. She is not currently taking any medications. Discharge Summary-Simple/Stand Consultations Discharge Physical Examination Allergies: Coded Allergies: Penicillins (Verified Allergy, Unknown, 11/08/20) Patient states she had an allergy as a child, but has taken amoxicillin as an adult without any reaction. Vitals & I&Os Vital Sign - Last 12Hours Date Time Temp Pulse Resp B/P (MAP) Pulse Ox O2 Delivery O2 Flow Rate FiO2 11/11/20 09:00 Room Air 11/11/20 08:00 35.8 65 18 125/77 (93) 93 11/10/20 06:56 1.00 11/08/20 16:29 21 Intake and Output 11/11/20 00:00 Intake Total 1300 ml Balance 1300 ml Hospital Course See final discharge diagnosis. Discharge Instructions to patient/family Please see electronic discharge instructions given to patient. Discharge Medications Reviewed and agree with Discharge Medication list on patient's Discharge Instruction sheet DUGLAS HUNTER MD Nov 11, 2020 12:13
[2020-11-11] MEDS ORDERED: DEXA2TAB PO (12:20)
[2020-11-11] MEDS ORDERED: ACHD5005 PO (12:20)
[2020-11-11] MEDS ORDERED: GUAI5LIQ PO (12:20)
--- NOTE | 2020-11-11 12:22 | Discharge Summary ---
Discharge [facility] Reconcile Patient Problems Problems Reviewed?: Yes Discharge Medications New, Converted or Re-Newed RX: Transmitted to Pharmacy New Medications: Dexamethasone (Dexamethasone) 2 Mg Tablet 2 MG PO DAILY, #5 TAB Guaifenesin/Codeine Phosphate (Guaifenesin-Codeine Syrup) 5 Ml Liquid 5 ML PO Q4H PRN for COUGH, #50 ML Hydrocodone Bit/Acetaminophen (HYDROcodone/APAP 5 MG/325 MG TAB) 1 Tab Tab 1 EA PO Q4H PRN for PAIN-MODERATE (5-7), #20 TAB Continued Medications: Acetaminophen (Tylenol Extra Strength) 500 Mg Tablet 1000 MG PO Q8H PRN for PAIN-MILD (1-4), TAB Discontinued Medications: Guaifen/Dextromethorphan/PE (Mucinex Fast-Max Congest-Cough) 180 Ml Liquid 20 ML PO Q4H PRN for COUGH, EA Ibuprofen (Ibuprofen) 200 Mg Capsule 400-600 MG PO Q8H PRN for PAIN-MILD (1-4), CAP Patient Instructions Goal/Follow Up Appt: F/u in clinic after out of [place] + covid patient Activity & Diet Discharge Diet: No Restrictions Activity as Tolerated: Yes DUGLAS HUNTER MD Nov 11, 2020 12:22
[2020-11-11 13:55] VITALS: BP 125/77
--- NOTE | 2020-11-12 12:43 | Physician Query Clarification ---
PQ-Further Specificity Admission/Discharge Admission Date: Nov 08, 2020 at 14:30 Discharge Date: Nov 11, 2020 at 13:55 The medical record reflects the following clinical scenario: History/Risk Factors: Hypoxia, COVID Clinical Findings: ABG p02 - 53 ABG 02 sats - 90 Treatment: Nasal cannula, dexamethasone Question: Can you further specify hypoxia per the clinical indicators above? Please document a response in the Progress Notes or Discharge Summary. 1. Acute respiratory failure with hypoxia 2. Hypoxia only, as documented 3. Other, with explanation of the clinical findings. 4. Clinically undetermined, no explanation for the clinical findings. Please remember a lack of response to the above will prompt a phone page by CDI/Coding staff. In responding to this query, please exercise your independent professional judgment. The purpose of this communication is to more accurately reflect the complexity of your patients condition. The fact that a question is asked does not imply that any particular answer is desired or expected. Thank you for your timely response to this clarification. Requestors name: Mabel THIS PHYSICIAN QUERY FORM IS A PERMANENT PART OF THE MEDICAL RECORD MABEL AMATO Nov 12, 2020 12:43
== END 2020-11-11 13:55 | disposition home or self-care (01) | DRG 179 ==
LOC: EDUNIT# 10:26 → ER FS 10:28 → 4TH 14:30
PROVIDERS: ADMIT Internal Medicine; ATTEND Family Medicine
DX: U07.1 COVID-19 (principal); R09.02 Hypoxemia; E86.0 Dehydration; R79.1 Abnormal coagulation profile
CPT/HCPCS: 36415; 71045; 71275; 80053; 81000; 82805; 83605; 83880; 84145; 84484; 85025; 85379; 85610; 85730; 86141; 87040; 87636; 93005; 93041; 94640; 94664; 94760; 96374; 96375

== ENCOUNTER 2021-01-04 12:48 | Emergency (ER) | payer SELFPAY ==
[~2021-01-04] VITALS: Ht 162.6 cm; Wt 77.1 kg
[~2021-01-04 12:48] MED LIST changes: +ACET-2267 PO; +ACHD5005 PO; +DEXA2TAB PO; +GUAI180L12 PO; +GUAI5LIQ PO; +IBUP-2185 PO
[2021-01-04] MEDS ORDERED: NS IV 1000 ML 1,000 ML IV STA (13:28)
--- NOTE | 2021-01-04 13:28 | ED GU-Female ---
General Stated Complaint: VOMITING; FEVER History of Present Illness Date Seen by Provider: Jan 04, 2021 Time Seen by Provider: 13:28 Initial Comments 50-year-old female who presents with fever, chills, dysuria. Patient reports the symptoms are about a day or so ago. She was seen in urgent care and sent to the ER. Patient had an old Cipro that she started this morning. Patient has had a history of recurrent urinary tract infections. Patient is got some mild vomiting along with the fever chills and dysuria Allergies and Home Medications Allergies Coded Allergies: Penicillins (Verified Allergy, Unknown, 11/08/20) Patient states she had an allergy as a child, but has taken amoxicillin as an adult without any reaction. Patient Home Medication List Home Medication List Reviewed: Yes Acetaminophen (Tylenol Extra Strength) 500 Mg Tablet, 1,000 MG PO Q8H PRN for PAIN-MILD (1-4), (Reported) Entered as Reported by: GRAZYNA SHAH on 11/09/20 0853 Dexamethasone (Dexamethasone) 2 Mg Tablet, 2 MG PO DAILY Prescribed by: DUGLAS HUNTER on 11/11/20 1220 Guaifenesin/Codeine Phosphate (Guaifenesin-Codeine Syrup) 5 Ml Liquid, 5 ML PO Q4H PRN for COUGH Prescribed by: DUGLAS HUNTER on 11/11/20 1221 Hydrocodone Bit/Acetaminophen (HYDROcodone/APAP 5 MG/325 MG TAB) 1 Tab Tab, 1 EA PO Q4H PRN for PAIN-MODERATE (5-7) Prescribed by: DUGLAS HUNTER on 11/11/20 1221 Review of Systems Review of Systems Constitutional: chills, fever Respiratory: no symptoms reported Cardiovascular: no symptoms reported Gastrointestinal: nausea, vomiting Genitourinary: dysuria, flank pain Skin: no symptoms reported Psychiatric/Neurological: No Symptoms Reported Endocrine: No Symptoms Reported Past Citbgxj-Kbswei-Fmufhz Hx Seasonal Allergies Seasonal Allergies: No Past Medical History Surgery/Hospitalization HX: Hypothyroidism, Pyelonephritis Surgeries: Yes (Left ureteral repair) Section, Hysterectomy Respiratory: No Cardiac: No Neurological: No Genitourinary: Yes Kidney Infection, Bladder Infection, UTI-Chronic Gastrointestinal: No Musculoskeletal: No Endocrine: No HEENT: No Cancer: No Psychosocial: No Blood Disorders: No Family Medical History Patient reports no known family medical history. No Pertinent Family Hx Physical Exam Vital Signs Vital Signs - First Documented 01/04/21 13:19 Temp 39.4 Pulse 145 Resp 19 B/P (MAP) 141/86 (104) O2 Delivery Room Air Capillary Refill : Height, Weight, BMI Height: '" Weight: lbs. oz. kg; 30.86 BMI Method: General Appearance: mild distress Cardiovascular: normal peripheral pulses, tachycardia Respiratory: lungs clear, normal breath sounds Gastrointestinal: non tender, soft Back: CVA tenderness (L) Extremities: normal range of motion, non-tender, normal inspection Neurologic/Psychiatric: alert, normal mood/affect, oriented x 3 Skin: normal color, warm/dry Focused Exam Lactate Level 01/04/21 13:35: Lactic Acid Level 1.54 Lactic Acid Level Laboratory Tests Test 01/04/21 13:35 Lactic Acid Level 1.54 MMOL/L (0.50-2.00) Progress/Results/Core Measures Suspected Sepsis SIRS Temperature: Pulse: Respiratory Rate: Laboratory Tests 01/04/21 13:30: White Blood Count 11.0 Blood Pressure / Mean: 01/04/21 13:35: Lactic Acid Level 1.54 Laboratory Tests 01/04/21 13:30: Platelet Count 174 Results/Orders Lab Results Laboratory Tests Test 01/04/21 13:30 01/04/21 13:35 01/04/21 13:51 Range/Units White Blood Count 11.0 4.3-11.0 10^3/uL Red Blood Count 4.38 3.80-5.11 10^6/uL Hemoglobin 13.9 11.5-16.0 g/dL Hematocrit 40 35-52 % Mean Corpuscular Volume 92 80-99 fL Mean Corpuscular Hemoglobin 32 25-34 pg Mean Corpuscular Hemoglobin Concent 34 32-36 g/dL Red Cell Distribution Width 13.2 10.0-14.5 % Platelet Count 174 130-400 10^3/uL Mean Platelet Volume 11.5 9.0-12.2 fL Immature Granulocyte % (Auto) 1 % Neutrophils (%) (Auto) 85 H 42-75 % Lymphocytes (%) (Auto) 6 L 12-44 % Monocytes (%) (Auto) 8 0-12 % Eosinophils (%) (Auto) 0 0-10 % Basophils (%) (Auto) 0 0-10 % Neutrophils # (Auto) 9.3 H 1.8-7.8 X 10^3 Lymphocytes # (Auto) 0.7 L 1.0-4.0 X 10^3 Monocytes # (Auto) 0.9 0.0-1.0 X 10^3 Eosinophils # (Auto) 0.0 0.0-0.3 10^3/uL Basophils # (Auto) 0.0 0.0-0.1 10^3/uL Immature Granulocyte # (Auto) 0.1 0.0-0.1 10^3/uL Neutrophils % (Manual) 80 % Lymphocytes % (Manual) 9 % Monocytes % (Manual) 5 % Band Neutrophils 6 % Platelet Estimate ADEQUATE Blood Morphology Comment NORMAL Lactic Acid Level 1.54 0.50-2.00 MMOL/L Urine Color YELLOW Urine Clarity CLOUDY Urine pH 6.5 5-9 Urine Specific [place] 1.015 L 1.016-1.022 Urine Protein TRACE H NEGATIVE Urine Glucose (UA) NEGATIVE NEGATIVE Urine Ketones NEGATIVE NEGATIVE Urine Nitrite NEGATIVE NEGATIVE Urine Bilirubin NEGATIVE NEGATIVE Urine Urobilinogen 0.2 < = 1.0 MG/DL Urine Leukocyte Esterase 3+ H NEGATIVE Urine RBC (Auto) 2+ H NEGATIVE Urine RBC 10-25 H /HPF Urine WBC TNTC H /HPF Urine Squamous Epithelial Cells NONE /HPF Urine Crystals NONE /LPF Urine Bacteria NEGATIVE /HPF Urine Casts NONE /LPF Urine Mucus SMALL H /LPF Urine Culture Indicated YES My Orders Orders - WENDY BLACKWELL L DO Cbc With Automated Diff (01/04/21 13:28) Comprehensive Metabolic Panel (01/04/21 13:28) Lactic Acid Analyzer (01/04/21 13:28) Ua Culture If Indicated (01/04/21 13:28) Ns Iv 1000 Ml (Sodium Chloride 0.9%) (01/04/21 13:28) Ed Iv/Invasive Line Start (01/04/21 13:28) Ceftriaxone (Rocephin) (01/04/21 13:30) Manual Differential (01/04/21 13:30) Urine Culture (01/04/21 13:51) Acetaminophen Tablet (Tylenol Tablet) (01/04/21 14:16) Medications Given in ED Current Medications Medications Dose Ordered Sig/Veronica Route Start Time Stop Time Status Last Admin Dose Admin Ceftriaxone Sodium 1000 mg/ Sterile Water 10 ml @ 200 mls/hr ONCE ONCE IV 01/04/21 13:30 01/04/21 13:32 DC 01/04/21 13:37 200 MLS/HR Vital Signs/I&O 01/04/21 13:19 Temp 39.4 Pulse 145 Resp 19 B/P (MAP) 141/86 (104) O2 Delivery Room Air Capillary Refill : Progress Note : Progress Note Patient was stable white count, lactic acid. At this time there is no indication for admission. I will prescribe her Keflex in case she does have an early pyelonephritis. Patient stable and discharged home Departure Impression Primary Impression: Urinary tract infection Qualified Codes: N30.01 - Acute cystitis with hematuria Disposition: HOME, SELF-CARE Condition: Stable Departure-Patient Inst. Referrals: MITESH TRAVIS MD (PCP/Family) Primary Care Physician Patient Instructions: Urinary Tract Infection, Adult (DC) Add. Discharge Instructions: Follow-up with your primary care provider in 3 to 4 days for recheck of your symptoms Return to the ER as needed Scripts Cephalexin (Cephalexin) 500 Mg Tablet 500 MG PO QID, #20 TAB 0 Refills Prov: WENDY BLACKWELL DO 01/04/21 WENDY BLACKWELL DO Jan 04, 2021 13:28
[2021-01-04] MEDS ORDERED: cefTRIAXone 1,000 MG in WATER (STERILE) FOR INJECTION 10 ML IV ONE (13:30)
[2021-01-04 14:00] LABS: HEMATOCRIT 40 % (35-52); HEMOGLOBIN 13.9 g/dL (11.5-16.0); LYMPHOCYTES % (AUTO) 6 % (12-44); MEAN CORPUSCULAR HEMOGLOBIN 32 pg (25-34); MEAN CORPUSCULAR HGB CONC 34 g/dL (32-36); MEAN CORPUSCULAR VOLUME 92 fL (80-99); MEAN PLATELET VOLUME 11.5 fL (9.0-12.2); MONOCYTES % (AUTO) 8 % (0-12); NEUTROPHILS % (AUTO) 85 % (42-75); PLATELET COUNT 174 10^3/uL (130-400)
[2021-01-04 14:01] LABS: BASOPHILS % (AUTO) 0 % (0-10); EOSINOPHILS % (AUTO) 0 % (0-10); LYMPHOCYTES # (AUTO) 0.7 X 10^3 (1.0-4.0); MONOCYTES # (AUTO) 0.9 X 10^3 (0.0-1.0); NEUTROPHILS # (AUTO) 9.3 X 10^3 (1.8-7.8)
[2021-01-04 14:03] LABS: BILIRUBIN,URINE NEGATIVE (NEGATIVE); CLARITY,URINE CLOUDY; COLOR,URINE YELLOW; GLUCOSE, URINE (UA) NEGATIVE (NEGATIVE); KETONES,URINE NEGATIVE (NEGATIVE); LEUKOCYTE ESTERASE ,URINE 3+ (NEGATIVE); NITRITE,URINE NEGATIVE (NEGATIVE); PH,URINE 6.5 (5-9); PROTEIN,URINE TRACE (NEGATIVE)
[2021-01-04 14:12] LABS: BACTERIA,URINE NEGATIVE /HPF; WBC,URINE TNTC /HPF
[2021-01-04] MEDS ORDERED: ACETAMINOPHEN 500 MG TAB (TYLENOL) PO STA (14:16)
[2021-01-04 14:28] LABS: BAND NEUTROPHILS 6 %; LYMPHOCYTES % (MANUAL) 9 %; MONOCYTES % (MANUAL) 5 %; NEUTROPHILS % (MANUAL) 80 %; PLATELET ESTIMATE ADEQUATE; RBC MORPH NORMAL
[2021-01-04 15:00] LABS: BILIRUBIN,TOTAL 0.4 MG/DL (0.1-1.0); BUN/CREATININE RATIO 17; CALCIUM 9.8 MG/DL (8.5-10.1); CARBON DIOXIDE 22 MMOL/L (21-32); CHLORIDE 101 MMOL/L (98-107); CREATININE SERUM 1.05 MG/DL (0.60-1.30); GFR ESTIMATED 56; GLUCOSE 135 MG/DL (70-105); POTASSIUM 4.4 MMOL/L (3.6-5.0); SODIUM 136 MMOL/L (135-145)
[2021-01-04] MEDS ORDERED: CEPH500T PO (15:00)
[2021-01-04 15:01] LABS: ALANINE AMINOTRANSFERASE 20 U/L (0-55); ALBUMIN 4.6 GM/DL (3.2-4.5); ALKALINE PHOSPHATASE 99 U/L (40-136); TOTAL PROTEIN 7.9 GM/DL (6.4-8.2)
[2021-01-04 15:27] VITALS: BP 117/86
== END 2021-01-04 15:27 | disposition home or self-care (01) ==
LOC: EDUNIT# 12:48 → ER FS 12:50
DX: N39.0 Urinary tract infection, site not specified (principal); R00.0 Tachycardia, unspecified
CPT/HCPCS: 36415; 80053; 81000; 83605; 85007; 85027; 87088

== ENCOUNTER 2022-04-11 17:30 | Emergency (ER) | payer SELFPAY ==
[~2022-04-11] VITALS: Ht 162 cm; Wt 81.6 kg
[~2022-04-11 17:30] MED LIST changes: +CEPH500T PO; +GUAI180L11 PO; -GUAI180L12 PO
[2022-04-11] MEDS ORDERED: LACTATED RINGERS 1,000 ML IV ONE (18:00)
[2022-04-11] MEDS ORDERED: CEFEPIME INJECTION 1,000 MG in NS (IVPB) 50 ML IV ONE (18:00)
[2022-04-11 18:09] LABS: ALBUMIN 4.2 GM/DL (3.2-4.5); POTASSIUM 4.9 MMOL/L (3.6-5.0)
[2022-04-11 18:10] LABS: BASOPHILS % (AUTO) 0 % (0-10); CALCIUM 9.8 MG/DL (8.5-10.1); EOSINOPHILS % (AUTO) 1 % (0-10); HEMATOCRIT 41 % (35-52); LYMPHOCYTES % (AUTO) 10 % (12-44); MEAN CORPUSCULAR VOLUME 89 fL (80-99); MONOCYTES # (AUTO) 0.6 10^3/uL (0.0-1.0); NEUTROPHILS # (AUTO) 5.8 10^3/uL (1.8-7.8); WHITE BLOOD COUNT 7.3 10^3/uL (4.3-11.0)
[2022-04-11 18:11] LABS: EOSINOPHILS # (AUTO) 0.1 10^3/uL (0.0-0.3); HEMOGLOBIN 14.1 g/dL (11.5-16.0); LYMPHOCYTES # (AUTO) 0.8 10^3/uL (1.0-4.0); MEAN CORPUSCULAR HEMOGLOBIN 31 pg (25-34); MEAN CORPUSCULAR HGB CONC 35 g/dL (32-36); MONOCYTES % (AUTO) 9 % (0-12); NEUTROPHILS % (AUTO) 79 % (42-75); PLATELET COUNT 164 10^3/uL (130-400)
[2022-04-11 18:12] LABS: TOTAL PROTEIN 8.4 GM/DL (6.4-8.2)
--- NOTE | 2022-04-11 18:12 | ED General ---
General Chief Complaint: Back Problems Stated Complaint: KIDNEY INFECTION, FEVER, NAUSEA Nursing Triage Note: PT PRESENTS TO ED VIA POV FROM HOME WITH COMPLAINTS OF L SIDED PAIN, CHILLS, FEVER, NAUSEA AND TACHYCARDIA X 2 DAYS. PT REPORTS SHE HAS HX OF KIDNEY INFECTIONS. Source of Information: Patient History of Present Illness Date Seen by Provider: Apr 11, 2022 Time Seen by Provider: 17:57 Initial Comments PT ARRIVES VIA POV FROM HOME PT HAS BEEN SICK SINCE YESTERDAY WITH: -FEVER UP TO 104 AND CHILLS-TOOK 400 MG IBUPROFEN AT 1530 TODAY -NAUSEA, NO VOMITING. DECREASED INTAKE--NO FOOD YESTERDAY OR TODAY, AND HAS ONLY HAD A LITTLE BIT OF WATER -LEFT FLANK PAIN RADIATING TO LEFT LOWER ABDOMEN -SLIGHT SHORTNESS OF BREATH SHE HAD A NORMAL BM YESTERDAY, NO BM TODAY NO PAIN OR DISCOMFORT ON URINATION, AND IS STILL VOIDING A NORMAL AMOUNT PT HAS HAD UTI'S / KIDNEY INFECTIONS, AND HAS BEEN HOSPITALIZED FOR UTI WITH SEPSIS IN THE PAST SHE HAS HAD HYSTERECTOMY WITH BSO IN 2013 WITH LEFT URETER INJURY SHE STATES THAT SINCE THEN, SHE HAS HAD THIS PROBLEM. PT IS NOT DIABETIC PT HAS NOT HAD COVID OR FLU VACCINES. 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 PCP: LINDA COLLINS Allergies and Home Medications Allergies Coded Allergies: Penicillins (Verified Allergy, Unknown, 11/08/20) Patient states she had an allergy as a child, but has taken amoxicillin as an adult without any reaction. Patient Home Medication List Home Medication List Reviewed: Yes Acetaminophen (Tylenol Extra Strength) 500 Mg Tablet, 1,000 MG PO Q8H PRN for PAIN-MILD (1-4), (Reported) Entered as Reported by: GRAZYNA SHAH on 11/09/20 0853 Cephalexin (Cephalexin) 500 Mg Tablet, 500 MG PO QID Prescribed by: WENDY BLACKWELL on 01/04/21 1500 Dexamethasone (Dexamethasone) 2 Mg Tablet, 2 MG PO DAILY Prescribed by: DUGLAS HUNTER on 11/11/20 1220 Guaifenesin/Codeine Phosphate (Guaifenesin-Codeine Syrup) 5 Ml Liquid, 5 ML PO Q4H PRN for COUGH Prescribed by: DUGLAS HUNTER on 11/11/20 1221 Hydrocodone Bit/Acetaminophen (HYDROcodone/APAP 5 MG/325 MG TAB) 1 Tab Tab, 1 EA PO Q4H PRN for PAIN-MODERATE (5-7) Prescribed by: DUGLAS HUNTER on 11/11/20 1221 Ondansetron (Ondansetron Odt) 8 Mg Tab.rapdis, 8 MG PO Q6H Prescribed by: HUBER JIN on 04/11/22 1914 Review of Systems Review of Systems Constitutional: see HPI, chills, diaphoresis, fever, malaise, weakness EENTM: no symptoms reported Respiratory: see HPI Cardiovascular: no symptoms reported Gastrointestinal: see HPI, abdominal pain; No constipation, No diarrhea; loss of appetite, nausea; No vomiting Genitourinary: see HPI Musculoskeletal: see HPI, back pain Skin: no symptoms reported Psychiatric/Neurological: No Symptoms Reported Hematologic/Lymphatic: No Symptoms Reported Immunological/Allergic: no symptoms reported Past Oxvpbcn-Sazwll-Dewots Hx Patient Social History Tobacco Use?: No Substance use?: No Alcohol Use?: No Pt feels they are or have been: No Seasonal Allergies Seasonal Allergies: No Past Medical History Surgery/Hospitalization HX: Hypothyroidism, Pyelonephritis Surgeries: Yes (Left ureteral repair) Section, Hysterectomy, Oophorectomy Respiratory: Yes (HOSPITALIZED FOR COVID IN 10/2020;LUNG NODULE) Cardiac: No Neurological: No : No (LEFT URETER INJURY/REPAIR DURING HYSTERECTOMY SURGERY) Reproductive Disorders: Yes Female Reproductive Disorders: Menstrual Problems [facility] ROOM History: Hysterectomy Genitourinary: Yes (RIGHT RENAL CYST) Kidney Infection, Bladder Infection, UTI-Chronic Gastrointestinal: No Musculoskeletal: No Endocrine: No HEENT: No Cancer: No Psychosocial: No Integumentary: No Blood Disorders: No Family Medical History Patient reports no known family medical history. No Pertinent Family Hx Physical Exam Vital Signs Vital Signs - First Documented 04/11/22 04/11/22 17:54 20:03 Temp 38.3 Pulse 142 Resp 16 B/P (MAP) 132/102 (112) Pulse Ox 97 O2 Delivery Room Air Capillary Refill : Less Than 3 Seconds Height, Weight, BMI Height: '" Weight: lbs. oz. kg; 31.00 BMI Method: General Appearance: WD/WN, Obese, Other (MILDLY ANXIOUS, AND MILDLY DYSPNEIC) HEENT: PERRL/EOMI, Moist Mucous Membranes; No Scleral Icterus (L), No Scleral Icterus (R) Neck: Normal Inspection Respiratory: Normal Breath Sounds, No Accessory Muscle Use, Other (MILD TACHYPNEA AND MILD DYSPNEA) Cardiovascular: No Edema, No JVD, No Murmur, Normal Peripheral Pulses, Tachycardia (130'S-140) Gastrointestinal: Soft; No Guarding, No Rebound; Tenderness (LEFT FLANK, LEFT MID AND LOWER ABDOMEN TENDERNESS) Back: No Vertebral Tenderness, CVA Tenderness (L) Extremity: Normal Capillary Refill, Normal Inspection Neurologic/Psychiatric: Alert, Oriented x3, No Motor/Sensory Deficits, carpenters helper II- XII Norm as Tested Skin: Normal Color, Warm/Dry; No Rash Focused Exam Sepsis Stage: Sepsis (POSSIBLE) Possible Source: Other (COVID) Lactate Level 04/11/22 17:48: Lactic Acid Level 1.47 Time of Focused Exam: 19:00 Respiratory: Normal Breath Sounds, No Accessory Muscle Use, No Respiratory Distress Cardiovascular: Regular Rate, Rhythm Capillary Refill: Less Than 3 Seconds Skin: normal color, warm/dry Lactic Acid Level Laboratory Tests Test 04/11/22 17:48 Lactic Acid Level 1.47 MMOL/L (0.50-2.00) Within 3hrs of presentation: Admin fluids, Admin ABX, Blood cultures prior to ABX's, Lactate level Progress/Results/Core Measures Suspected Sepsis SIRS Temperature: Pulse: 142 Respiratory Rate: 16 Laboratory Tests 04/11/22 17:48: White Blood Count 7.3 Blood Pressure 132 /102 Mean: 112 04/11/22 17:48: Lactic Acid Level 1.47 Laboratory Tests 04/11/22 17:48: Creatinine 1.09, INR Comment 1.0, Platelet Count 164, Total Bilirubin 0.4 Results/Orders Lab Results Laboratory Tests Test 04/11/22 17:48 04/11/22 18:22 04/11/22 19:16 Range/Units White Blood Count 7.3 4.3-11.0 10^3/uL Red Blood Count 4.56 3.80-5.11 10^6/uL Hemoglobin 14.1 11.5-16.0 g/dL Hematocrit 41 35-52 % Mean Corpuscular Volume 89 80-99 fL Mean Corpuscular Hemoglobin 31 25-34 pg Mean Corpuscular Hemoglobin Concent 35 32-36 g/dL Red Cell Distribution Width 13.5 10.0-14.5 % Platelet Count 164 130-400 10^3/uL Mean Platelet Volume 13.0 H 9.0-12.2 fL Immature Granulocyte % (Auto) 1 % Neutrophils (%) (Auto) 79 H 42-75 % Lymphocytes (%) (Auto) 10 L 12-44 % Monocytes (%) (Auto) 9 0-12 % Eosinophils (%) (Auto) 1 0-10 % Basophils (%) (Auto) 0 0-10 % Neutrophils # (Auto) 5.8 1.8-7.8 10^3/uL Lymphocytes # (Auto) 0.8 L 1.0-4.0 10^3/uL Monocytes # (Auto) 0.6 0.0-1.0 10^3/uL Eosinophils # (Auto) 0.1 0.0-0.3 10^3/uL Basophils # (Auto) 0.0 0.0-0.1 10^3/uL Immature Granulocyte # (Auto) 0.1 0.0-0.1 10^3/uL Percent Immature Platelet Fraction 5.8 0.0-7.6 % Erythrocyte Sedimentation Rate 22 0-30 MM/HR Prothrombin Time 13.2 12.2-14.7 SEC INR Comment 1.0 0.8-1.4 Activated Partial Thromboplast Time 33 24-35 SEC Sodium Level 135 135-145 MMOL/L Potassium Level 4.9 3.6-5.0 MMOL/L Chloride Level 107 98-107 MMOL/L Carbon Dioxide Level 16 L 21-32 MMOL/L Anion Gap 12 5-14 MMOL/L Blood Urea Nitrogen 16 7-18 MG/DL Creatinine 1.09 0.60-1.30 MG/DL Estimat Glomerular Filtration Rate 62 BUN/Creatinine Ratio 15 Glucose Level 106 H 70-105 MG/DL Lactic Acid Level 1.47 0.50-2.00 MMOL/L Calcium Level 9.8 8.5-10.1 MG/DL Corrected Calcium 9.6 8.5-10.1 MG/DL Magnesium Level 2.1 1.6-2.4 MG/DL Total Bilirubin 0.4 0.1-1.0 MG/DL Aspartate Amino Transf (AST/SGOT) 42 H 5-34 U/L Alanine Aminotransferase (ALT/SGPT) 39 0-55 U/L Alkaline Phosphatase 107 40-136 U/L C-Reactive Protein High Sensitivity 6.29 H 0.00-0.50 MG/DL Total Protein 8.4 H 6.4-8.2 GM/DL Albumin 4.2 3.2-4.5 GM/DL Amylase Level 52 25-125 U/L Lipase 39 8-78 U/L Influenza Type A (RT-PCR) Not Detected Not Detecte Influenza Type B (RT-PCR) Not Detected Not Detecte SARS-CoV-2 RNA (RT-PCR) Detected H Not Detecte Urine Color YELLOW Urine Clarity CLEAR Urine pH 6.0 5-9 Urine Specific [place] <=1.005 1.016-1.022 Urine Protein NEGATIVE NEGATIVE Urine Glucose (UA) NEGATIVE NEGATIVE Urine Ketones NEGATIVE NEGATIVE Urine Nitrite NEGATIVE NEGATIVE Urine Bilirubin NEGATIVE NEGATIVE Urine Urobilinogen 0.2 < = 1.0 MG/DL Urine Leukocyte Esterase NEGATIVE NEGATIVE Urine RBC (Auto) NEGATIVE NEGATIVE Urine RBC NONE /HPF Urine WBC NONE /HPF Urine Squamous Epithelial Cells 0-2 /HPF Urine Crystals NONE /LPF Urine Bacteria TRACE /HPF Urine Casts NONE /LPF Urine Mucus NEGATIVE /LPF Urine Culture Indicated NO My Orders Orders - HUBER JIN DO Ed Iv/Invasive Line Start (04/11/22 17:56) Monitor-Rhythm Ecg Trace Only (04/11/22 17:56) Amylase (04/11/22 17:56) Cbc With Automated Diff (04/11/22 17:56) Comprehensive Metabolic Panel (04/11/22 17:56) Hs C Reactive Protein (04/11/22 17:56) Lactic Acid Analyzer (04/11/22 17:56) Lipase (04/11/22 17:56) Magnesium (04/11/22 17:56) Ua Culture If Indicated (04/11/22 17:56) Erythrocyte Sedimentation Rate (04/11/22 17:56) Ed Iv/Invasive Line Start (04/11/22 17:56) Lactated Ringers (Lr 1000 Ml Iv Solution (04/11/22 18:00) Covid 19 Inhouse Test (04/11/22 17:56) Influenza A And B By Pcr (04/11/22 17:56) Isolation Central Supply Req (04/11/22 17:56) Blood Culture (04/11/22 17:56) Urine Culture (04/11/22 17:56) Protime With Inr (04/11/22 17:56) Partial Thromboplastin Time (04/11/22 17:56) Chest 1 View, Ap/Pa Only (04/11/22 17:56) Ed Iv/Invasive Line Start (04/11/22 17:56) Vital Signs Adult Sepsis Patie Q15M (04/11/22 17:56) Remove Rings In Anticipation O (04/11/22 17:56) Cefepime Injection (Maxipime Injection) (04/11/22 18:00) Ondansetron Injection (Zofran Injectio (04/11/22 18:15) Ketorolac Injection (Toradol Injection) (04/11/22 18:15) Acetaminophen Tablet (Tylenol Tablet) (04/11/22 18:15) Ibuprofen Tablet (Motrin Tablet) (04/11/22 18:15) Ct Abd/Pelvis Wo(Kidney Stone) (04/11/22 18:28) Rx-Nirmatrelvir/Ritonavir(Eua) (Rx-Paxlo (04/11/22 19:15) Rx-Ondansetron Po (Rx-Zofran Po) (04/11/22 19:54) Medications Given in ED Current Medications Medications Dose Ordered Sig/Veronica Route Start Time Stop Time Status Last Admin Dose Admin Acetaminophen 1,000 mg ONCE ONCE PO 04/11/22 18:15 04/11/22 18:16 DC 04/11/22 18:18 1,000 MG Cefepime HCl 1000 mg/Sodium Chloride 50 ml @ 100 mls/hr ONCE ONCE IV 04/11/22 18:00 04/11/22 18:29 DC 04/11/22 19:12 100 MLS/HR Ibuprofen 400 mg ONCE ONCE PO 04/11/22 18:15 04/11/22 18:16 DC 04/11/22 18:19 400 MG Ketorolac Tromethamine 30 mg ONCE ONCE IVP 04/11/22 18:15 04/11/22 18:16 DC 04/11/22 18:14 30 MG Lactated Ringer's 1,000 ml @ 0 mls/hr Q0M ONCE IV 04/11/22 18:00 04/11/22 18:01 DC 04/11/22 18:14 0 MLS/HR Ondansetron HCl 8 mg ONCE ONCE IVP 04/11/22 18:15 1/30/23 18:16 DC 04/11/22 18:14 8 MG Vital Signs/I&O 04/11/22 04/11/22 17:54 20:03 Temp 38.3 Pulse 142 95 Resp 16 20 B/P (MAP) 132/102 (112) 102/72 Pulse Ox 97 96 O2 Delivery Room Air Capillary Refill : Less Than 3 Seconds Blood Pressure Mean: 112 Progress Note : Progress Note PLACED IN ISOLATION ROOM PPE WORN COVID AND FLU TESTING DONE SEPSIS PROTOCOL INITIATED PT WAS GIVEN: -IV FLUIDS -ZOFRAN FOR NAUSEA -TORADOL FOR PAIN -CEFEPIME PER SEPSIS PROTOCOL -TYLENOL AND MOTRIN FOR FEVER REVIEWED PRIOR RECORDS, INCLUDING ER VISITS, ADMITS, H&P'S, TESTS/PROCEDURES, CONSULTS AND DISCHARGE SUMMARIES NO DETERIORATION IN PT'S CONDITION DURING ER STAY PAIN AND NAUSEA MUCH IMPROVED AT DISMISSAL HR AND RR DOWN, AND TEMP DOWN WITH FLUIDS AND ANTIPYRETICS PT HAS POSITIVE COVID TEST, WHICH IS LIKELY CAUSE FOR PT'S SYMPTOMS NORMAL WBC, NORMAL LACTIC ACID, NO UTI OR PNEUMONIA--NO OTHER EVIDENCE OF SEPSIS REVIEWED ALL TEST RESULTS, ANTICIPATED COURSE, SYMPTOMATIC TREATMENT, MEDICATIONS--DISCUSSED PAXLOVID TREATMENT AND PT WISHES TO PROCEED WITH THIS TREATMENT, AND PT WAS GIVEN MEDICATION HERE AND SENT HOME WITH TAKE HOME PACK FOR COURSE OF TREATMENT, QUARANTINE, RETURN PRECAUTIONS, AND NEED FOR FOLLOW UP WORK NOTES WERE SENT HOME WITH PT AND FOR Diagnostic Imaging Comments CXR--PER RADIOLOGIST REPORT AT 1835 FINDINGS: Heart size and pulmonary vascularity are normal. Lungs are clear. There are no effusions or pneumothoraces. IMPRESSION: Negative chest. CT ABDOMEN/PELVIS--PER RADIOLOGIST REPORT AT 1905 Lung bases are clear. There is a calcified granuloma at the left lung base. Liver appears normal. Gallbladder surgically absent. Pancreas is normal. Spleen is not enlarged. Adrenals are normal. There is a 6 cm cyst on the inferior pole of the right kidney. There is no solid mass, calculus or hydronephrosis in either kidney. Uterus is surgically absent. Urinary bladder appears normal. Appendix is normal. Small bowel is not dilated. Colon is unremarkable. IMPRESSION: No acute abnormality seen that would account for left flank pain. Reviewed: Reviewed by Me Departure Impression Primary Impression: COVID-19 virus infection Disposition: HOME, SELF-CARE Condition: Improved Departure-Patient Inst. Decision time for Depature: 19:11 Referrals: MITESH TRAVIS MD (PCP/Family) Primary Care Physician Patient Instructions: COVID-19 ED, Preventing the Spread of an Infectious Disease, Nirmatrelvir and Ritonavir FDA Fact Sheet Add. Discharge Instructions: HOME, REST LOTS OF CLEAR LIQUIDS--WATER, BROTH, JELLO, GATORADE--DRINK ENOUGH SO YOU ARE URINATING EVERY 2-3 HOURS WHILE AWAKE TAKE TYLENOL 1 GRAM PLUS MOTRIN 800 MG 4 TIMES A DAY FOR PAIN OR FEVER TAKE PAXLOVID INSTRUCTED QUARANTINE FOR 10 DAYS FOLLOW UP WITH YOUR DR IF NO IMPROVEMENT IN 5-7 DAYS, RETURN TO ER IF YOUR SYMPTOMS WORSEN All discharge instructions reviewed with patient and/or family. Voiced understanding. Scripts Ondansetron (Ondansetron Odt) 8 Mg Tab.rapdis 8 MG PO Q6H, #10 TAB Prov: HUBER JIN DO 04/11/22 Work/School Note: Work Release Form Date Seen in the Emergency Department: Apr 11, 2022 Return to Work: Apr 21, 2022 Restrictions: No Restrictions HUBER JIN DO Apr 11, 2022 18:11
[2022-04-11 18:13] LABS: BILIRUBIN,TOTAL 0.4 MG/DL (0.1-1.0)
[2022-04-11 18:15] LABS: CREATININE SERUM 1.09 MG/DL (0.60-1.30); PROTHROMBIN TIME PATIENT 13.2 SEC (12.2-14.7)
[2022-04-11] MEDS ORDERED: KETOROLAC 30 MG/ML VIAL IVP ONE (18:15)
[2022-04-11] MEDS ORDERED: IBUPROFEN TABLET 200 MG TAB PO ONE (18:15)
[2022-04-11] MEDS ORDERED: ACETAMINOPHEN 500 MG TAB (TYLENOL) PO ONE (18:15)
[2022-04-11] MEDS ORDERED: ONDANSETRON 4 MG/2 ML (SDV) Z0FRAN IVP ONE (18:15)
[2022-04-11 18:18] LABS: MAGNESIUM 2.1 MG/DL (1.6-2.4)
--- NOTE | 2022-04-11 18:22 | Diagnostic Imaging Report ---
INDICATION: Fever. EXAMINATION: Portable chest, 6:16 p.m. FINDINGS: Heart size and pulmonary vascularity are normal. Lungs are clear. There are no effusions or pneumothoraces. IMPRESSION: Negative chest. Dictated by: Dictated on workstation # [id number]
[2022-04-11 18:30] LABS: ERYTHROCYTE SEDIMENTATION RATE 22 MM/HR (0-30)
--- NOTE | 2022-04-11 18:58 | Diagnostic Imaging Report ---
PROCEDURE: CT urinary tract, rule out kidney stone. TECHNIQUE: Multiple contiguous axial images were obtained through the abdomen and pelvis without the use of intravenous contrast. Auto Exposure Controls were utilized during the CT exam to meet ALARA standards for radiation dose reduction. INDICATION: Left flank pain Lung bases are clear. There is a calcified granuloma at the left lung base. Liver appears normal. Gallbladder surgically absent. Pancreas is normal. Spleen is not enlarged. Adrenals are normal. There is a 6 cm cyst on the inferior pole of the right kidney. There is no solid mass, calculus or hydronephrosis in either kidney. Uterus is surgically absent. Urinary bladder appears normal. Appendix is normal. Small bowel is not dilated. Colon is unremarkable. IMPRESSION: No acute abnormality seen that would account for left flank pain. Dictated by: Dictated on workstation # [id number]
[2022-04-11] MEDS ORDERED: ONDA8TAB13 PO (19:14)
[2022-04-11] MEDS ORDERED: RX-NIRMATRELVIR/RITONAVIR (PAXLOVID) #30 TABS PO SCH (19:15)
[2022-04-11 19:28] LABS: BILIRUBIN,URINE NEGATIVE (NEGATIVE); CLARITY,URINE CLEAR; COLOR,URINE YELLOW; GLUCOSE, URINE (UA) NEGATIVE (NEGATIVE); KETONES,URINE NEGATIVE (NEGATIVE); LEUKOCYTE ESTERASE ,URINE NEGATIVE (NEGATIVE); NITRITE,URINE NEGATIVE (NEGATIVE); PROTEIN,URINE NEGATIVE (NEGATIVE)
[2022-04-11 19:45] LABS: BACTERIA,URINE TRACE /HPF; SQUAMOUS EPITHELIAL CELL,UR 0-2 /HPF
[2022-04-11] MEDS ORDERED: RX-ONDANSETRON 4 MG ODT (ZOFRAN) PPK #4 PO STA (19:54)
[2022-04-11 20:03] VITALS: BP 102/72
== END 2022-04-11 20:03 | disposition home or self-care (01) ==
LOC: EDUNIT# 17:30 → ER 17:32
DX: U07.1 COVID-19 (principal); R50.9 Fever, unspecified; R11.0 Nausea; R06.02 Shortness of breath; E66.9 Obesity, unspecified; Z68.31 Body mass index [BMI] 31.0-31.9, adult; Z88.0 Allergy status to penicillin; Z86.16 Personal history of COVID-19; Z28.310 Unvaccinated for COVID-19
CPT/HCPCS: 36415; 71045; 74176; 80053; 81000; 82150; 83605; 83690; 83735; 85025; 85610; 85652; 85730; 86141; 87040; 87088; 87636; 93041

== ENCOUNTER 2022-07-10 17:35 | Emergency (ER) | payer SELFPAY ==
[~2022-07-10 17:35] MED LIST changes: +ONDA8TAB13 PO
== END 2022-07-10 17:55 | disposition home or self-care (01) ==
LOC: EDUNIT# 17:35 → ER 17:38
DX: R10.9 Unspecified abdominal pain (principal)

== ENCOUNTER 2023-02-10 16:22 | Emergency (ER) | payer BC, OTHER ==
[~2023-02-10] VITALS: Ht 162.6 cm; Wt 77.1 kg
[~2023-02-10 16:22] MED LIST changes: -GUAI180L11 PO; +GUAI180L12 PO
[2023-02-10] MEDS ORDERED: FAMOTIDINE 20 MG TABLET PO STA (16:34)
[2023-02-10] MEDS ORDERED: NS IV 1000 ML 1,000 ML IV STA (16:34)
--- NOTE | 2023-02-10 16:37 | ED GI ---
General Stated Complaint: N/V Source of Information: Patient Exam Limitations: No Limitations History of Present Illness Date Seen by Provider: Feb 10, 2023 Time Seen by Provider: 16:23 Initial Comments 53-year-old female with no pertinent past medical history coming in due to 1 day of nonbloody nonbilious vomiting and nonbloody diarrhea. Her significant other was sick with the same thing a couple days ago. She also believes she has had a subjective fever and body aches. Has not taken any medicines at all. Last vomited about an hour prior to arrival. Denies any severe abdominal pain, chest pain, shortness of breath, weakness, numbness, dysuria, rash, or any other concerns. Allergies and Home Medications Allergies Coded Allergies: Penicillins (Verified Allergy, Unknown, 11/08/20) Patient states she had an allergy as a child, but has taken amoxicillin as an adult without any reaction. Patient Home Medication List Home Medication List Reviewed: Yes Acetaminophen (Tylenol Extra Strength) 500 Mg Tablet, 1,000 MG PO Q8H PRN for PAIN-MILD (1-4), (Reported) Entered as Reported by: GRAZYNA SHAH on 11/09/20 0853 Cephalexin (Cephalexin) 500 Mg Tablet, 500 MG PO QID Prescribed by: WENDY BLACKWELL on 01/04/21 1500 Dexamethasone (Dexamethasone) 2 Mg Tablet, 2 MG PO DAILY Prescribed by: DUGLAS HUNTER on 11/11/20 1220 Guaifenesin/Codeine Phosphate (Guaifenesin-Codeine Syrup) 5 Ml Liquid, 5 ML PO Q4H PRN for COUGH Prescribed by: DUGLAS HUNTER on 11/11/20 1221 Hydrocodone Bit/Acetaminophen (HYDROcodone/APAP 5 MG/325 MG TAB) 1 Tab Tab, 1 EA PO Q4H PRN for PAIN-MODERATE (5-7) Prescribed by: DUGLAS HUNTER on 11/11/20 1221 Ondansetron (Ondansetron Odt) 8 Mg Tab.rapdis, 8 MG PO Q6H Prescribed by: HUBER JIN on 04/11/22 191 Review of Systems Review of Systems Constitutional: fever, malaise EENTM: No Symptoms Reported Respiratory: No Symptoms Reported Cardiovascular: No Symptoms Reported Gastrointestinal: See HPI Genitourinary: No Symptoms Reported Musculoskeletal: no symptoms reported Skin: no symptoms reported Psychiatric/Neurological: No Symptoms Reported Past Urshphe-Hfoorq-Gqcrua Hx Seasonal Allergies Seasonal Allergies: No Past Medical History Surgery/Hospitalization HX: Hypothyroidism, Pyelonephritis Surgeries: Yes (Left ureteral repair) Section, Hysterectomy, Oophorectomy Respiratory: Yes (HOSPITALIZED FOR COVID IN 10/2020;LUNG NODULE) Cardiac: No Neurological: No Reproductive Disorders: Yes 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 No Pertinent Family Hx Physical Exam Vital Signs Vital Signs - First Documented 02/10/23 16:29 Temp 37.9 Pulse 87 Resp 19 B/P (MAP) 124/76 (92) O2 Delivery Room Air Capillary Refill : Height/Weight/BMI Height: '" Weight: lbs. oz. kg; 31.00 BMI Method: General Appearance: WD/WN, no apparent distress HEENT: PERRL/EOMI, normal ENT inspection, pharynx normal Neck: non-tender, full range of motion, supple, normal inspection Respiratory: chest non-tender, lungs clear, normal breath sounds, no respiratory distress, no accessory muscle use Cardiovascular: regular rate, rhythm, no edema Gastrointestinal: normal bowel sounds, non tender, soft; No distended, No guarding, No rebound Extremities: normal range of motion, non-tender, normal inspection, no pedal edema, no calf tenderness, normal capillary refill Back: normal inspection, no CVA tenderness Neurologic/Psychiatric: no motor/sensory deficits, alert, normal mood/affect Skin: normal color, warm/dry Progress/Results/Core Measures Results/Orders Lab Results Laboratory Tests Test 02/10/23 16:32 02/10/23 16:37 Range/Units Influenza Type A (RT-PCR) Not Detected Not Detecte Influenza Type B (RT-PCR) Not Detected Not Detecte SARS-CoV-2 RNA (RT-PCR) Not Detected Not Detecte White Blood Count 8.9 4.3-11.0 10^3/uL Red Blood Count 5.05 3.80-5.11 10^6/uL Hemoglobin 15.8 11.5-16.0 g/dL Hematocrit 46 35-52 % Mean Corpuscular Volume 92 80-99 fL Mean Corpuscular Hemoglobin 31 25-34 pg Mean Corpuscular Hemoglobin Concent 34 32-36 g/dL Red Cell Distribution Width 11.9 10.0-14.5 % Platelet Count 192 130-400 10^3/uL Mean Platelet Volume 11.6 9.0-12.2 fL Immature Granulocyte % (Auto) 0 % Neutrophils (%) (Auto) 95 H 42-75 % Lymphocytes (%) (Auto) 3 L 12-44 % Monocytes (%) (Auto) 2 0-12 % Eosinophils (%) (Auto) 0 0-10 % Basophils (%) (Auto) 0 0-10 % Neutrophils # (Auto) 8.4 H 1.8-7.8 10^3/uL Lymphocytes # (Auto) 0.3 L 1.0-4.0 10^3/uL Monocytes # (Auto) 0.1 0.0-1.0 10^3/uL Eosinophils # (Auto) 0.0 0.0-0.3 10^3/uL Basophils # (Auto) 0.0 0.0-0.1 10^3/uL Immature Granulocyte # (Auto) 0.0 0.0-0.1 10^3/uL Sodium Level 138 135-145 MMOL/L Potassium Level 4.5 3.6-5.0 MMOL/L Chloride Level 103 98-107 MMOL/L Carbon Dioxide Level 23 21-32 MMOL/L Anion Gap 12 5-14 MMOL/L Blood Urea Nitrogen 20 H 7-18 MG/DL Calcium Level 9.4 8.5-10.1 MG/DL Total Bilirubin 0.6 0.1-1.0 MG/DL Total Protein 8.0 6.4-8.2 GM/DL Lipase 40 8-78 U/L My Orders Orders - PHILOMENA FOSTER MD Cbc And Automated Diff (02/10/23 16:34) Comprehensive Metabolic Panel (02/10/23 16:34) Lipase (02/10/23 16:34) Influenza A And B By Pcr (02/10/23 16:34) Covid 19 Inhouse Test (02/10/23 16:34) Diphenhydramine Injection (Diphenhydram (02/10/23 16:45) Promethazine Injection (Promethazine I (02/10/23 16:45) Ketorolac Injection (Ketorolac Injection (02/10/23 16:45) Famotidine Tablet (Famotidine Tablet) (02/10/23 16:34) Antacid Suspension (Antacid Suspension (02/10/23 16:45) Ns Iv 1000 Ml (Ns Iv 1000 Ml) (02/10/23 16:34) Manual Differential (02/10/23 16:37) Medications Given in ED Current Medications Medications Dose Ordered Sig/Veronica Route Start Time Stop Time Status Last Admin Dose Admin Al Hydrox/Mg Hydrox/Simethicone 30 ml ONCE ONCE PO 02/10/23 16:45 02/10/23 16:46 DC 02/10/23 16:45 30 ML Diphenhydramine HCl 25 mg ONCE ONCE IVP 02/10/23 16:45 02/10/23 16:46 DC 02/10/23 16:42 25 MG Ketorolac Tromethamine 15 mg ONCE ONCE IVP 02/10/23 16:45 02/10/23 16:46 DC 02/10/23 16:44 15 MG Promethazine HCl 25 mg ONCE ONCE IVP 02/10/23 16:45 02/10/23 16:46 DC 02/10/23 16:42 25 MG Vital Signs/I&O 02/10/23 16:29 Temp 37.9 Pulse 87 Resp 19 B/P (MAP) 124/76 (92) O2 Delivery Room Air Progress Progress Note : Progress Note 53-year-old female with above history coming in due to vomiting and diarrhea. ABCs were intact and vitals were stable on presentation. Physical exam reassuring including a soft and nontender abdomen. An IV was placed and basic labs were obtained and were significant for normal white blood cell count, normal creatinine, LFTs unremarkable, normal lipase. She was given IV fluids, Phenergan, and a GI cocktail. Feels significantly better. Flu and COVID were also negative. Repeat abdominal exam once again reassuring. Likely this is a GI bug especially given her significant other had the same a day ago. I believe she is stable for discharge with outpatient follow-up. She was sent home with strict return precautions. Departure Impression Primary Impression: Vomiting and diarrhea Disposition: HOME, SELF-CARE Condition: Stable Departure-Patient Inst. Decision time for Depature: 17:15 Referrals: GRAHAM ZHOU MD (PCP) Primary Care Physician Patient Instructions: Nausea and Vomiting, Adult ED Add. Discharge Instructions: Nausea medicines were sent to your pharmacy. Try to take frequent but small sips of fluids. Follow-up with your regular doctor if you are not seeing improvement in the next day or so. Scripts Promethazine HCl (Promethazine Suppository) 25 Mg Supp.rect 25 MG RC Q8H PRN for NAUSEA/VOMITING-2ND LINE for 5 Days, #15 SUPP.RECT Prov: PHILOMENA FOSTER MD 02/10/23 Ondansetron (Ondansetron Odt) 4 Mg Tab.rapdis 4 MG SL Q6H PRN for NAUSEA/VOMITING-1ST LINE for 5 Days, #20 TAB Prov: PHILOMENA FOSTER MD 02/10/23 PHILOMENA FOSTER MD Feb 10, 2023 16:37
[2023-02-10 16:40] LABS: BASOPHILS % (AUTO) 0 % (0-10); EOSINOPHILS % (AUTO) 0 % (0-10); HEMATOCRIT 46 % (35-52); HEMOGLOBIN 15.8 g/dL (11.5-16.0); LYMPHOCYTES # (AUTO) 0.3 10^3/uL (1.0-4.0); LYMPHOCYTES % (AUTO) 3 % (12-44); MEAN CORPUSCULAR HEMOGLOBIN 31 pg (25-34); MEAN CORPUSCULAR HGB CONC 34 g/dL (32-36); MEAN CORPUSCULAR VOLUME 92 fL (80-99); MEAN PLATELET VOLUME 11.6 fL (9.0-12.2); MONOCYTES # (AUTO) 0.1 10^3/uL (0.0-1.0); MONOCYTES % (AUTO) 2 % (0-12); NEUTROPHILS # (AUTO) 8.4 10^3/uL (1.8-7.8); NEUTROPHILS % (AUTO) 95 % (42-75); PLATELET COUNT 192 10^3/uL (130-400); WHITE BLOOD COUNT 8.9 10^3/uL (4.3-11.0)
[2023-02-10] MEDS ORDERED: diphenhydrAMINE INJ 50 MG/ML VIAL IVP ONE (16:45)
[2023-02-10] MEDS ORDERED: PROMETHAZINE INJ 25 MG/ML VIAL IVP ONE (16:45)
[2023-02-10] MEDS ORDERED: KETOROLAC INJ 15 MG/ML VIAL IVP ONE (16:45)
[2023-02-10] MEDS ORDERED: ANTACID SUSPENSION 30 ML UDC PO ONE (16:45)
[2023-02-10 16:56] LABS: BILIRUBIN,TOTAL 0.6 MG/DL (0.1-1.0); CALCIUM 9.4 MG/DL (8.5-10.1); POTASSIUM 4.5 MMOL/L (3.6-5.0)
[2023-02-10 17:01] LABS: ALBUMIN 4.5 GM/DL (3.2-4.5); CREATININE SERUM 1.13 MG/DL (0.60-1.30)
[2023-02-10] MEDS ORDERED: ONDA4TAB11 SL (17:02)
[2023-02-10] MEDS ORDERED: PROM25SU44 RC (17:02)
[2023-02-10 17:29] VITALS: BP 124/71
[2023-02-10 18:28] LABS: LYMPHOCYTES % (MANUAL) 3 %; MONOCYTES % (MANUAL) 2 %; NEUTROPHILS % (MANUAL) 95 %
== END 2023-02-10 17:29 | disposition home or self-care (01) ==
LOC: EDUNIT# 16:22 → ER FS 16:24
DX: R19.7 Diarrhea, unspecified (principal); R11.2 Nausea with vomiting, unspecified
CPT/HCPCS: 36415; 80053; 83690; 85007; 85027; 87636